=== PATIENT | female | born 1995 | race Caucasian/White ===

== ENCOUNTER 2019-02-05 18:13 | Emergency (ER) | payer OTHER, SELFPAY ==
[2019-02-05 18:14] VITALS: BP 137/86; PULSE 103; RESP 28; TEMP 36.6; O2SAT 98; BMI 26.6
--- NOTE | 2019-02-05 18:15 | ED.RN ---
Addendum entered by Emiliana Campos 02/05/19 18:17: PT ALSO HAD BREATHING TX AND ALBUTEROL INHALER USE TECHNOLOGY SERVICES MANAGER. Original Note: PT HAS H/O ALLERGIES AND ASTHMA. SEPSIS ALERT NOT ALERTED D/T THIS HISTORY.
[2019-02-05] MEDS: predniSONE 20 MG Tablet 60 MG PO (18:31)
[2019-02-05] MEDS: Ipratropium/Albuterol Sulfate 3 ML AMPUL.NEB INHALATION (18:32)
[2019-02-05] MEDS: Albuterol 2.5 MG/3 ML VIAL.NEB. INHALATION ×2 (18:32)
[2019-02-05 18:35] VITALS: PULSE 110; RESP 20
--- NOTE | 2019-02-05 20:03 | ED.VISSUMM ---
- ER Visit Summary Date of Service: 02/05/19 Chief Complaint: Asthma, short of breath History of Present Illness: The patient is a 23 F reports increased shortness of breath last evening with wheezing. She states she will get relief for 2 to 4 hours with a nebulizer. She was using her inhaler every 2 hours and not noticing much improvement this afternoon. She was exposed to trees and pollen yesterday which she thinks triggered her asthma attack. She does not remember the last time she was on steroids for her breathing. Physical Examination: Blood pressure is 137/86, temperature 97.9, heart rate 103, respiratory rate 28, pulse ox 98% on room air. Patient sitting upright in bed. She is speaking sentences. Heart is regular rate and rhythm. Lung sounds with expiratory wheezes and decreased air movement throughout. Abdomen is soft and nontender. Test Results: [] Emergency Department Course and Treatment: Patient was given DuoNeb +2 albuterol's along with p.o. prednisone. I evaluated her immediately after the aerosols and she felt somewhat jittery. I was later asked to come back to her room. She had had a coughing fit and could not catch her breath. She hyperventilated and was having spasms in her hands and feet. Nonrebreather mask was on her when I entered the room. I asked the nurse to turn the oxygen off to it. With slow breathing we were able to get her calms down and off of the mask. I have reevaluated her 2 or 3 separate times since then and she is resting comfortably and feels much improved. She will be given a spacer to use with her inhaler. She will be given 4 additional days of steroids. Treatment Plan: [] Disposition: Discharge Impression: Asthma exacerbation This note was generated with [employer] dictation software. It may contain incorrect words, spelling, and punctuation that were not noted in review of the chart prior to signing ED Disposition - Plan for ED Patient: Disposition: Home or Assisted Living Instructions: ED Reactive Airway Disease Prescriptions: Prednisone [Deltasone] 40 mg PO DAILY #8 tablet Referrals: Moi Sewell III, MD [Primary Care Provider] - 3-5 Days if not improving
== END 2019-02-05 20:15 | disposition home or self-care (01) ==
PROVIDERS: Emergency Provider Emergency Medicine; Family Provider Family Medicine; PCP Family Medicine
DX: J45.901 Unspecified asthma with (acute) exacerbation (principal)
CPT/HCPCS: 94640; 99282

== ENCOUNTER 2021-10-05 00:21 | Emergency (ER) | payer OTHER, SELFPAY ==
[2021-10-05 00:24] VITALS: BP 133/67; PULSE 83; RESP 15; TEMP 36.9; O2SAT 100; BMI 25.4
--- NOTE | 2021-10-05 00:32 | EX.ED.DYSGE1 ---
HPI History of Present Illness Chief Complaint: Nausea/Vomiting Informant: patient Narrative Narrative: 25-year-old female presenting to the emergency department with nausea. Patient states that she is approximately 18 weeks (). Currently following with automotive assembler in [facility]. Patient states that she had diarrhea this morning. No further diarrhea since then. An hour prior to arrival she laid down and had nausea and the developed a sharp pain on the right and the left sides of her abdomen. No vomiting. No fevers. No runny nose sore throat or cough. No vaginal bleeding or leakage of fluid. She notes the has been rather uneventful. PFSH PFSH Medical History no medical history Home Medications ondansetron 4 mg PO Q6H PRN PRN #15 tab 10/05/21 [Rx Last Taken Unknown] [id number] [] 1 tab PO DAILY 10/05/21 [History Last Taken Unknown] Allergy/AdvReac Type Severity Reaction Status Date / Time Sulfa (Sulfonamide Allergy Rash Verified 10/05/21 00:23 Antibiotics) Surgical History no surgical history Social History (Updated 10/05/21 @ 00:[address] Vinny Jarvis, DO) current gender identity: female Smoking Status: Never smoker ROS ROS ED Constitutional Constitutional ED: Denies chills, fever(s) or weight loss Eyes Eyes: Denies change in vision or diplopia ENT ENT ED: Denies ear pain, rhinorrhea or sore throat Cardiovascular Cardiovascular: Denies chest pain, orthopnea, palpitations or racing heartbeat Respiratory/Chest Respiratory/Chest: Denies cough, dyspnea or orthopnea Gastrointestinal Gastrointestinal: Reports abdominal pain, diarrhea and nausea; Denies vomiting Genitourinary Genitourinary ED: Denies dysuria, hematuria or urinary frequency Musculoskeletal Musculoskeletal: Denies arthralgias or myalgias Integumentary Denies abscess or rash Neurologic Neurologic: Denies headache(s) or weakness Psychiatric Psychiatric: Denies anxiety, depression, suicidal ideation or suicidal thoughts Endocrine Endocrinology: Denies polydipsia, polyphagia or polyuria Allergic/Immunologic Allergic/Immunologic ED: Denies mouth swelling, tongue swelling or urticaria EXAM Physical Exam Const Vital Signs: 10/05/21 00:24 Temperature 98.4 F Temperature Source Oral Pulse Rate 83 Respiratory Rate 15 Blood Pressure 133/67 H Blood Pressure Mean 89 Pulse Ox 100 Oxygen Delivery Method Room Air Positive well nourished and well developed General Appearance ED: well developed HEENT Reports normocephalic, head/scalp atraumatic, TM's clear and moist mucous membranes Negative for trauma Tympanic Membrane ED: Yes TM's clear Eyes PERRL and EOMs intact bilaterally Neck no lymphadenopathy, supple and no JVD Resp normal respiratory effort and clear to auscultation bilaterally Cardio regular rate, regular rhythm and no murmurs GI normal to inspection, nondistended, normoactive bowel sounds and non-tender Palpation: soft Back/Spine no CVA tenderness and normal ROM Extremity normal to inspection General Extremety ED: Negative for edema General Extremity: Negative for edema Neuro oriented x3 and CN's II-XII intact bilaterally Sensorium / Orientation: alert Motor Exam: strength 5/5 throughout Psych mental status grossly normal Mood & Affect: Negative for depressed or tearful Skin no rashes or lesions noted and no wounds MDM MDM MDM Narrative Medical decision making narrative: White count 9.4. CMP negative. Lipase is 78. Urinalysis 1+ bacteria but no overt infection. Patient received a dose of Zofran. heart tones are normal. Her abdomen is nonsurgical. She clinically appears well. Is difficult to say with 1 episode of diarrhea and now with nausea if this represents a gastroenteritis. Patient will have Zofran written for her. Return if worsening or concerns patient and her significant other comfortable with this plan. Lab Data Attestation: I reviewed the patient's lab results. Labs: Laboratory Results - last 24 hr 10/05/21 10/05/21 10/05/21 01:00 01:00 01:05 WBC 9.4 RBC 3.67 L Hgb 11.3 L Hct 33.0 L MCV 89.9 MCH 30.8 MCHC 34.2 RDW Std Deviation 41.6 RDW Coeff of Ksenia 12.8 Plt Count 231 MPV 10.5 Immature Gran % (Auto) 0.300 Neut % (Auto) 60.1 Lymph % (Auto) 25.7 [place]lin % (Auto) 11.3 H Eos % (Auto) 2.2 Baso % (Auto) 0.4 Absolute Neuts (auto) 5.6 Absolute Lymphs (auto) 2.40 Nucleated RBC % 0 Sodium 140 Potassium 3.6 Chloride 107 Carbon Dioxide 25.0 Anion Gap 8 BUN 15 Creatinine 0.50 L Estim Creat Clear Calc 151.11 Est GFR (MDRD) Af Amer 193 Est GFR (MDRD) Non-Af 159 BUN/Creatinine Ratio 29.7 H Glucose 74 Calcium 8.4 L Total Bilirubin 0.20 AST 14 L ALT 26 Alkaline Phosphatase 37 L Total Protein 6.5 Albumin 3.0 L Globulin 3.5 Albumin/Globulin Ratio 0.9 Lipase 78 Urine Color Yellow Urine Clarity Clear Urine pH 6.5 Ur Specific [place] 1.015 Urine Protein 15 H Urine Glucose (UA) Normal Urine Ketones Negative Urine Occult Blood Negative Urine Nitrite Negative Urine Bilirubin Negative Urine Urobilinogen Normal Ur Leukocyte Esterase Negative Urine RBC 0 SEEN Urine WBC 0-5 SEEN Ur Squamous Epith Cells 0-5 SEEN Urine Bacteria 1+ Urine Mucus 0 SEEN Discharge Plan Triage Chief Complaint: Nausea/Vomiting ED Provider: Vinny Jarvis Dx/Rx/DC Orders Clinical Impression: Second trimester , Nausea, Diarrhea Instructions: Nausea Vomit Control Prescriptions: New ondansetron [ondansetron] 4 MG tablet 4 mg PO Q6H PRN PRN (Reason: Nausea) Qty: 15 RF: 0 No Action 1 mg Tablet 1 tab PO DAILY RF: 0 Primary Care Provider: Care Physician,No Primary Referrals: Care Physician,No Primary [Primary Care Provider] - Activity Restrictions/Additional Instructions: Follow-up with your oracle applications developer as scheduled Disposition Disposition: Home, Self Care
[2021-10-05] MEDS: Ondansetron 4 MG/2 ML Vial IV (01:04)
[2021-10-05 01:07] LABS: Absolute Neutrophil Count 5.6 X10^3/uL (2.0-7.7); Basophil# 0.04 X10^3/uL; Basophil% 0.4 % (0-1); Eosinophil# 0.21 X10^3/uL; Eosinophils% 2.2 % (0-5); Hemoglobin 11.3 g/dL (12.0-15.0); Lymphocyte % 25.7 % (19-41); Mean Corp Hgb Conc 34.2 g/dL (32-36); Mean Corpuscular Hgb 30.8 pg (27.0-32.0); Mean Corpuscular Volume 89.9 fL (81-99); Mean Platelet Vol. 10.5 fl (6.2-12.0); Monocyte# 1.06 X10^3/uL; Monocyte% 11.3 % (0-10); NRBC Flagged by Analyzer 0 % (0-5); Neutrophil # 5.61 X10^3/uL (2.7-7.7); Neutrophil % 60.1 % (47-70); Platelet Count 231 K/mm3 (150-450); RBC Distribution Width CV 12.8 % (11.6-14.6); RBC Distribution Width SD 41.6 fl (35.1-43.9); Red Blood Count 3.67 M/mm3 (4.2-5.4); White Blood Count 9.4 K/mm3 (4.4-11.0)
[2021-10-05 01:13] LABS: Mucous, Urine 0 SEEN /hpf (<or=2+); Red Blood Cells-Urine 0 SEEN /hpf (0-5)
[2021-10-05 01:14] LABS: Color, Urine Yellow (Yellow); Glucose, Dipstick Normal (Normal); Ketone-Dipstick Negative (Negative); Leukocyte Esterase-Dipstick Negative /ul (Negative); Nitrite-Dipstick Negative (Negative); Occult Blood-Urine Negative /ul (Negative); Protein-Dipstick 15 mg/dl (Negative); Specific Gravity, Urine 1.015 (1.002-1.030); Urine Bilirubin Dipstick Negative (Negative); Urine Clarity Clear (Clear); Urine Urobilinogen Normal (Normal); Urine pH 6.5 (5.0 - 8.0)
[2021-10-05 01:23] LABS: Bacteria 1+ /hpf (None Seen); Squamous Epithelial Cells - UA 0-5 SEEN /hpf (5-10); White Blood Cells 0-5 SEEN /hpf (0-5)
[2021-10-05 01:24] LABS: ALB/GLOB Ratio 0.9 RATIO (0.9-2.4); AST(SGOT) 14 U/L (15-37); Alanine Aminotransfer ALT/SGPT 26 U/L (13-56); Alkaline Phosphatase 37 U/L (45-117); Anion Gap 8 (5-15); BUN 15 mg/dL (7-18); BUN/Creat Ratio 29.7 RATIO (10-20); Calcium,Total 8.4 mg/dL (8.5-10.1); Chloride 107 mmol/L (98-107); EST Glomerular Filtration Rate 159 mL/min (>60); Est Glom Filt Rate - Afr Amer 193 mL/min (>60); Estimated Creatinine Clearance 151.11 ml/min; Globulin 3.5 g/dL (2.2-4.2); Glucose 74 mg/dL (74-106); Lipase 78 U/L (73-393); Potassium 3.6 mmol/L (3.5-5.1); Protein, Total 6.5 g/dL (6.4-8.2); Sodium Level 140 mmol/L (136-145)
== END 2021-10-05 01:41 | disposition home or self-care (01) ==
PROVIDERS: Emergency Provider Emergency Medicine; Visit Provider Emergency Medicine
DX: O21.0 Mild hyperemesis gravidarum (principal); O26.892 Other specified pregnancy related conditions, second trimester; R19.7 Diarrhea, unspecified; Z3A.18 18 weeks gestation of pregnancy
CPT/HCPCS: 80053; 81001; 83690; 85025; 87426; 96374; 99283; J2405

== ENCOUNTER 2022-01-21 02:00 | Outpatient (CLI) | payer OTHER, SELFPAY ==
[2022-01-21 02:18] VITALS: BP 142/66; PULSE 155
--- NOTE | 2022-01-21 06:15 | OB.TRI.PN ---
Progress Notes Date of Service: 01/21/22 Progress Note: Chief complaint: Psychosis History of present illness: 26-year-old G1, P0 at 33 weeks arrives to [facility] being taken care of by clay structure builder and servicer. Patient noted by family to be lucid and incoherent in her thoughts, rambling and not making any sense. Also found to be combative. Feeling like she is scared and afraid. Denies suicidal homicidal thoughts or ideations. Patient with possible complaints of leakage of fluid but difficult to discern from other complaints. Obstetrical history: G1: Current Past medical history: None Medications: None Past surgical history: None Allergies: No known drug allergies Social history: Denies smoking, alcohol use, drug use Family history: Denies history DVT or PE Review of systems: Besides above pertinent positives a full review of systems was performed and found to be negative Physical exam: Vital signs: Blood pressure 111/60 pulse 89 respiratory rate 16 SPO2 97% on room air General: Normal-appearing no acute distress. Now resting in bed HEENT: Normocephalic atraumatic no cervical of adenopathy Cardiac/respiratory: No use of accessory muscles, nonlabored breathing Abdomen: Soft, nontender, gravid. No palpable contractions Extremities: No peripheral edema normal peripheral pulses Psych: AOA x3. Responsive and relaxed noncombative. Depressive and mood. Normal speech pattern Labs: ROM negative Assessment plan: 26-year-old G1, P0 at 33 weeks being seen by clay structure builder and servicer with acute psychosis. Initially combative on labor and delivery sent to ER for psych evaluation. History gathered from patient, , clay structure builder and servicer. No medications given overall upon my examination calm and AOA x3 but depressive thoughts and concerns for her mother and some flight of thought. Denies suicidal or homicidal ideations. Seems much improved from initial nursing evaluation. agreed improvement from initial evaluation and patient she feels seems improved. Discussed case with ER physician Dr. Meade, seen by crisis team and deemed okay for home-going. From a obstetric standpoint normal heart tracing, cervix no signs of labor, ROM negative no signs of rupture membranes. Overall obstetrically reassuring. Discussed concerns with ER team for psych issues overall by ER deemed stable to go home. Given numbers for crisis centers and follow-up with crisis center. Discussed with patient and clay structure builder and servicer need for hospital-based obstetric care and at home was not recommended, patient and clay structure builder and servicer stated understanding.
--- NOTE | 2022-01-21 11:30 | CASEMGMT ---
Social Work Labor and Delivery Unit This underwriter mortgage loan consulted by unit clinical configuration release manager for support for this patient who presented to the unit with a gold layer and . The patient appearing to be having some mental health concerns at time of presentation. RN inquiring input on how to best support patient should patient return with similar complaints. Patient is reported as 33 weeks . Records reviewed. Noted OB physician documentation of concern for acute psychosis in this patient, as well as nursing documentation indicating patient having a difficultly accepting nursing interventions (batting nursing away), tearful, and yelling at nurses. Also noted that patient indicated to nursing that did not feel safe. Upon further review of records noted that patient was seen in the ED, evaluated by ED physician and crisis with plan for outpatient follow up at the local counseling center for expedited referral to care. Noted positive drug screen for marijuana. This underwriter mortgage loan with concerns due to presenting symptoms for this patient, and reported duration of symptoms, which from this underwriter mortgage loan's experience would warrant some close mental health follow up. For continuity of care of this patient, collaboration and handoff to the [facility] ED social work case manager Sarah RICH. ED SW to collaborate with crisis regarding mental health follow up and determination of need for additional services/interventions. -LAYLA Napier, HEATER TENDER
--- NOTE | 2022-01-25 20:51 | ED.RN ---
[facility] from ED discharge. I was able to see patient was ordered medications upon discharge from OB. Spoke with john at [facility] he will call OB to see if order can be called in
== END 2022-01-21 02:50 | disposition home or self-care (01) ==
LOC: WPOUT 02:04 → WP 02:05
PROVIDERS: Visit Provider Obstetrics & Gynecology
DX: O99.343 Other mental disorders complicating pregnancy, third trimester (principal); F23 Brief psychotic disorder; Z3A.33 33 weeks gestation of pregnancy
CPT/HCPCS: 59025; 59050; 80048; 80076; 80307; 81001; 82077; 84112; 84443; 84702; 85025; 87086; 87088; 96360; 99218; 99284; J7030; A4216; G0378

== ENCOUNTER 2022-01-21 02:57 | Emergency (ER) | payer OTHER, SELFPAY ==
[2022-01-21 02:59] VITALS: BP 134/110; PULSE 73; RESP 19; TEMP 37.2; O2SAT 99; BMI 24.2
[2022-01-21 03:25] LABS: Mucous, Urine 0 SEEN /hpf (<or=2+); Red Blood Cells-Urine 0 SEEN /hpf (0-5)
[2022-01-21 03:26] LABS: Color, Urine Yellow (Yellow); Glucose, Dipstick Normal (Normal); Ketone-Dipstick 15 mg/dl (Negative); Leukocyte Esterase-Dipstick 25 /ul (Negative); Nitrite-Dipstick Negative (Negative); Occult Blood-Urine Negative /ul (Negative); Protein-Dipstick 15 mg/dl (Negative); Urine Bilirubin Dipstick Negative (Negative); Urine Clarity Clear (Clear); Urine Urobilinogen Normal (Normal)
[2022-01-21] MEDS: 0.9% Normal Saline 1,000 ML 999 ML IV (03:27)
[2022-01-21 03:35] LABS: Absolute Lymphocyte Count 1.53 X10^3/uL (0.83-4.51); Absolute Neutrophil Count 5.4 X10^3/uL (2.0-7.7); Basophil# 0.02 X10^3/uL; Basophil% 0.2 % (0-1); Eosinophil# 0.14 X10^3/uL; Eosinophils% 1.7 % (0-5); Hematocrit 36.7 % (37-47); Hemoglobin 12.5 g/dL (12.0-15.0); Lymphocyte # 1.53 X10^3/ul (0.83-4.51); Mean Corp Hgb Conc 34.1 g/dL (32-36); Mean Corpuscular Hgb 31.3 pg (27.0-32.0); Mean Platelet Vol. 10.8 fl (6.2-12.0); Monocyte# 0.91 X10^3/uL; Monocyte% 11.3 % (0-10); NRBC Flagged by Analyzer 0 % (0-5); Neutrophil # 5.42 X10^3/uL (2.7-7.7); Neutrophil % 67.3 % (47-70); Platelet Count 241 K/mm3 (150-450); RBC Distribution Width CV 12.6 % (11.6-14.6); RBC Distribution Width SD 42.2 fl (35.1-43.9); Red Blood Count 3.99 M/mm3 (4.2-5.4); White Blood Count 8.1 K/mm3 (4.4-11.0)
[2022-01-21 03:35] LABS: Bacteria 2+ /hpf (None Seen); Squamous Epithelial Cells - UA 0-5 SEEN /hpf (5-10); White Blood Cells 0-5 SEEN /hpf (0-5)
[2022-01-21 03:41] LABS: Amphetamine Urine VISTA NEGATIVE (<1000 ng/mL); Barbiturate Urine VISTA NEGATIVE (< 200 ng/mL); Benzodiazepine Urine VISTA NEGATIVE (< 200 ng/mL); Cocaine Urine VISTA NEGATIVE (< 300 ng/mL); Ecstacy Urine VISTA NEGATIVE (< 500 ng/mL); Methadone Urine VISTA NEGATIVE (< 300 ng/mL); PCP Urine VISTA NEGATIVE (< 25 ng/mL); THC Urine VISTA POSITIVE (< 50 ng/mL); Vista UDS pH Range 5
[2022-01-21 03:48] LABS: Alcohol, Blood (Medical)-Serum < 3.0 mg/dL
[2022-01-21 03:52] VITALS: RESP 18; O2SAT 100
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
[2022-01-21 04:00] LABS: Anion Gap 8 (5-15); BUN 8 mg/dL (7-18); BUN/Creat Ratio 13.4 RATIO (10-20); Calcium,Total 8.5 mg/dL (8.5-10.1); Chloride 111 mmol/L (98-107); EST Glomerular Filtration Rate 131 mL/min (>60); Est Glom Filt Rate - Afr Amer 158 mL/min (>60); Estimated Creatinine Clearance 124.85 ml/min; Glucose 84 mg/dL (74-106); Potassium 3.7 mmol/L (3.5-5.1); Sodium Level 139 mmol/L (136-145); Thyroid Stim Hormone (TSH) 0.96 uIU/mL (0.358-3.74)
[2022-01-21 04:07] LABS: hCG Titer Quant., Serum 7820 mIU/mL (1-3)
[2022-01-21 04:19] LABS: AST(SGOT) 21 U/L (15-37); Alanine Aminotransfer ALT/SGPT 24 U/L (13-56); Albumin, Serum 3.1 g/dL (3.2-5.0); Alkaline Phosphatase 87 U/L (45-117); Globulin 3.6 g/dL (2.2-4.2); Protein, Total 6.7 g/dL (6.4-8.2)
--- NOTE | 2022-01-21 04:59 | NURSING ---
Spoke with OB nurse about concern of contractions and pt water possibly breaking verse incontinent. pt allowed her day care attendant to check her cervix 1-1.5cm per day care attendant. OB nurse will talk with OB doctor and get back with ED staff.
--- NOTE | 2022-01-21 05:36 | NURSING ---
OB nurse on unit completed ROM sent to lab. pt allowed OB nurse to perform cervix check exam.
[2022-01-21 05:47] LABS: ROM Internal Control Test YES-OK TO RESULT pt. (Internal QC); ROM Patient Test Negative (Negative)
--- NOTE | 2022-01-21 06:51 | NURSING ---
Dr Nava spoke with ED doctor and requested pt be placed for mental health
--- NOTE | 2022-01-21 07:05 | NURSING ---
Pt to report to crisis center at 11am for diagnostic services. pt, spouse, and mother in law stated understanding.
== END 2022-01-21 07:06 | disposition home or self-care (01) ==
PROVIDERS: Emergency Provider Student in an Organized Health Care Education/Training Program; PCP Family Medicine; Visit Provider Student in an Organized Health Care Education/Training Program
DX: O26.893 Other specified pregnancy related conditions, third trimester (principal); F41.9 Anxiety disorder, unspecified; R41.0 Disorientation, unspecified; R31.9 Hematuria, unspecified; Z3A.33 33 weeks gestation of pregnancy; O99.343 Other mental disorders complicating pregnancy, third trimester
CPT/HCPCS: 80048; 80076; 80307; 81001; 82077; 84112; 84443; 84702; 85025; 87086; J7030; A4216

== ENCOUNTER 2022-01-21 13:20 | Emergency (ER) | payer OTHER, SELFPAY ==
[2022-01-21] VITALS (9 sets, daily range): BP systolic 110–128; BP diastolic 62–93; PULSE 74–83; RESP 15–22; TEMP 36.1–36.9; O2SAT 95–100; BMI 27.3
[2022-01-21 14:43] LABS: Thyroid Stim Hormone (TSH) 0.89 uIU/mL (0.358-3.74)
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
--- NOTE | 2022-01-21 15:11 | CT_ITS ---
STUDY: CT BRAIN WITHOUT CONTRAST REASON FOR EXAM: Female, 26 years old. Altered mental status/confusion -- ; please shield abd RADIATION DOSAGE (If Supplied By Facility): CTDIvol = ( 44.99 ) mGy, DLP = ( 762.36 ) mGycm TECHNIQUE: Transaxial CT imaging of the brain was performed without administration of intravenous contrast material. Individualized dose optimization techniques were used for this CT. COMPARISON: Comparison is made with prior study dated 10/09/2015. FINDINGS: Normal soft tissue structures. Normal calvarium. Normal size ventricles and extra-axial spaces for the patient''s age. Normal white matter tracts of the cerebral hemispheres. Normal basal ganglia and thalami. Normal brainstem. Normal cerebellum. There is no intracranial hemorrhage. There are no findings of an acute ischemic infarction. Mild degree of mucosal thickening of the right ethmoid sinus. CT/Brain/Head without Contrast IMPRESSION: Mild degree of mucosal thickening of the right ethmoid sinus. Electronically Signed: Alfie Aguero MD at 15:25 EDT ,
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
--- NOTE | 2022-01-21 17:38 | CM.ED ---
JACK Note JACK called [facility] and made referral. JACK faxed referral information to [facility]. JACK called [facility] and inquired if they would take accept a patient 33 weeks . [facility] said that it would be up to the MD. JACK faxed referral to [facility] JACK called [facility]. They are unsure if they would accept patient as she is 33 weeks . [facility] requested demographics be faxed to them for review. JACK faxed demographics to [facility]. JACK called [facility]. They can't accept patient. JACK faxed referral to [facility] for review. JACK faxed referral to [facility] for review. JACK received call from Almita at [facility]. They will review the packet JACK called Martha at [facility]. She will review the packet for patient. Sarah RICH
--- NOTE | 2022-01-21 19:27 | CM.ED ---
JACK Note: SW received call from [facility]. They declined patient due to acuity.
--- NOTE | 2022-01-21 19:38 | CM.ED ---
SW Note [facility] was called by this jingle writer. They are at capacity. Sarah RICH
--- NOTE | 2022-01-21 19:42 | CM.ED ---
Addendum entered by Sarah Olguin 01/24/22 14:37: Prior to leaving patient said that she was ok to go home. SW advised patient that she needed to go somewhere for help and could not go home. Patient receptive to this plan. SW advised patient that she was accepted at [facility]. Patient and her voiced understanding. Plan: [facility] Addendum entered by Sarah Olguin 01/21/22 20:20: [facility] has no beds. [facility]. They are unable to take patient due to acuity. JACK called [facility]. They do not take [facility]. SW called [facility]. They do not take patients. SW called [facility]. They do not take patient. SW called [facility]. They take patiet on a case by case basis. However, based on patient being 33 weeks the admission staff did not think they would accept patient. JACK called [facility]. They accept patients. JACK faxed referral. JACK received call from Martha at [facility]. They can accept patient. Accepting MD is Dr. Sam. RN to RN is [phone]. Patient is going to the C unit [id number].Martha said that insurance is ok and it has been entered in the computer so transport can be scheduled. Nya said that transport is 2-3 hours out. JACK updated patient and her . JACK faxed tox screen, pink slip and covid screen to [facility]. JACK received call from Mitchell at [facility]. They were able to accept patient. However, patient was accepted at [facility] so placement not needed. JACK called [facility] and advised placement was not [facility]. [facility] Original Note: JACK Note JACK called [facility]. They do not take patient on psych [facility] LISWILLIAM
--- NOTE | 2022-01-21 21:05 | ED.RN ---
Report given to Karen at [facility].
[2022-01-22] VITALS: RESP 14
[2022-01-22 01:27] VITALS: BP 184/119; RESP 16; O2SAT 96
[2022-01-22 01:31] VITALS: BP 111/63; PULSE 75; RESP 19; TEMP 36.9; O2SAT 95
--- NOTE | 2022-01-25 10:37 | CM.ED ---
J[facility] made report to [facility] regarding patient. Nathaly voiced that she is unsure what they can do at this time but it is good that they are aware. Sarah RICH
== END 2022-01-22 01:32 ==
PROVIDERS: Emergency Provider Emergency Medicine; PCP Family Medicine; Visit Provider Emergency Medicine
DX: O99.343 Other mental disorders complicating pregnancy, third trimester (principal); F29 Unspecified psychosis not due to a substance or known physiological condition
CPT/HCPCS: 70450; 84443; 87811; 99285

== ENCOUNTER 2022-03-07 02:55 | Inpatient (IN) | payer OTHER, SELFPAY ==
[2022-03-07] VITALS (42 sets, daily range): BP systolic 98–138; BP diastolic 48–91; PULSE 56–153; RESP 16; TEMP 36.5–37.5; O2SAT 89–100; BMI 29.5
[2022-03-07 03:14] LABS: ROM Internal Control Test YES-OK TO RESULT pt. (Internal QC)
[2022-03-07 03:15] LABS: ROM Patient Test POSITIVE (Negative)
--- NOTE | 2022-03-07 03:32 | PCM.HP.OB ---
HPI - General General Date of Admission: 03/07/22 HPI Narrative PARISH KIM, is a 26 F who presents at 39 2/7 weeks gestation by states WALTER with painful contractions and leaking of clear fluid vaginally. She is accompanied by her Mitchell Kim and her home kindergarten instructional assistant Nahomi Malone who advised she come in for evaluation after hearing a heart rate deceleration. Patient initially received care with [facility] including dating US. complicated by hx of psychosis 12/2021. Maternal Data Information WALTER Calculator Estimated Delivery Date Method Current WG Current Estimate 03/12/22 Manual 39w 2d PFSH [facility] Medical History (Updated 03/07/22 @ 03:[address] Kait Lloyd MD) Abuse Anxiety Asthma Depression Heart murmur Panic attacks Psychiatric disorder Home Medications [id number] [] 1 tab PO DAILY 10/05/21 [History Last Taken 03/06/22 21:00] quetiapine [Seroquel] 100 mg PO DAILY 03/07/22 [History Last Taken 03/06/22 21:00] Allergy/AdvReac Type Severity Reaction Status Date / Time Sulfa (Sulfonamide Allergy Rash Verified 03/07/22 02:06 Antibiotics) Surgical History [place] teeth removed Social History (Updated 03/07/22 @ 03:[address] Kait Lloyd MD) Smoking Status: Never smoker alcohol intake: never substance use type: does not use and other details: CBD Gummies for weeks, nothing else History 1 Elective abortions Hx Para 0 Spontaneous abortions Hx # Term Pregnancies Ectopic pregnancies Hx # Pregnancies Multiple births # of living children NST FHR Rate Baby A Baseline: 145 Variability:: Moderate Accelerations:: 15 x 15 Decelerations:: None NST Reactive:: Yes FHR Category:: Category I Uterine Activity:: 3-4/10 Vital Signs Vital Signs Vital Signs: 03/07/22 02:10 03/07/22 02:11 03/07/22 02:12 Temperature 98.9 F Temperature Source Temporal Pulse Rate 69 74 Blood Pressure 138/86 H BP Systolic 138 BP Diastolic 86 Pulse Ox 98 Weight Weight: 78.199 kg Body Mass Index (BMI) 29.5 Physical Exam Const alert, oriented x3 and no apparent distress HEENT normocephalic Head and Scalp: atraumatic Resp normal respiratory effort, normal air movement and clear to auscultation bilaterally Cardio regular rate and regular rhythm GI normal to inspection, nondistended, normoactive bowel sounds, soft to palpation, non-tender and non-distended Inspection: gravid Narrative: Recent RN exam / US shows julian IUP, CEPHALIC, direct OP with fundal posterior placenta Labs Labs Labs: Hct 36.7 % (37-47) L Hgb 12.5 g/dL (12.0-15.0) Assessment & Plan (1) 39 weeks gestation of : COMMENT: SROM PLAN: Admit in labor Epidural per patient request GBS unknown, will treat if prolonged rupture of membranes >18h labs sent Social work consultation
[2022-03-07] MEDS: LACTATED RINGERS 500 ML 999 ML IV (03:34)
[2022-03-07 03:45] LABS: Bacteria 0 SEEN /hpf (None Seen); Mucous, Urine 0 SEEN /hpf (<or=2+); Red Blood Cells-Urine 0 SEEN /hpf (0-5); Squamous Epithelial Cells - UA 0 SEEN /hpf (5-10); White Blood Cells 0 SEEN /hpf (0-5)
[2022-03-07 03:47] LABS: Color, Urine Straw (Yellow); Glucose, Dipstick Normal (Normal); Ketone-Dipstick Negative (Negative); Leukocyte Esterase-Dipstick Negative /ul (Negative); Nitrite-Dipstick Negative (Negative); Occult Blood-Urine Negative /ul (Negative); Protein-Dipstick Negative (Negative); Specific Gravity, Urine 1.005 (1.002-1.030); Urine Bilirubin Dipstick Negative (Negative); Urine Clarity Clear (Clear); Urine Urobilinogen Normal (Normal); Urine pH 6.5 (5.0 - 8.0)
[2022-03-07 03:48] LABS: Absolute Lymphocyte Count 1.45 X10^3/uL (0.83-4.51); Absolute Neutrophil Count 11.9 X10^3/uL (2.0-7.7); Basophil# 0.04 X10^3/uL; Basophil% 0.3 % (0-1); Eosinophil# 0.07 X10^3/uL; Eosinophils% 0.5 % (0-5); Hematocrit 36.7 % (37-47); Hemoglobin 12.2 g/dL (12.0-15.0); Lymphocyte # 1.45 X10^3/ul (0.83-4.51); Mean Corp Hgb Conc 33.2 g/dL (32-36); Mean Corpuscular Hgb 30.6 pg (27.0-32.0); Mean Platelet Vol. 12.5 fl (6.2-12.0); Monocyte# 0.93 X10^3/uL; Monocyte% 6.4 % (0-10); NRBC Flagged by Analyzer 0 % (0-5); Neutrophil # 11.89 X10^3/uL (2.7-7.7); Neutrophil % 82.1 % (47-70); Platelet Count 186 K/mm3 (150-450); RBC Distribution Width CV 13.2 % (11.6-14.6); RBC Distribution Width SD 44.2 fl (35.1-43.9); Red Blood Count 3.99 M/mm3 (4.2-5.4); White Blood Count 14.5 K/mm3 (4.4-11.0)
[2022-03-07 03:56] LABS: Bedside Glucose 94 mg/dL (74-106)
[2022-03-07 04:05] LABS: Amphetamine Urine VISTA NEGATIVE (<1000 ng/mL); Barbiturate Urine VISTA NEGATIVE (< 200 ng/mL); Benzodiazepine Urine VISTA NEGATIVE (< 200 ng/mL); Cocaine Urine VISTA NEGATIVE (< 300 ng/mL); Ecstacy Urine VISTA NEGATIVE (< 500 ng/mL); Methadone Urine VISTA NEGATIVE (< 300 ng/mL); PCP Urine VISTA NEGATIVE (< 25 ng/mL); THC Urine VISTA NEGATIVE (< 50 ng/mL)
[2022-03-07] MEDS: Lactated Ringers 1,000 ML 200 ML IV ×2 (04:05→08:53)
[2022-03-07 04:25] LABS: Vista UDS pH Range 6
[2022-03-07] MEDS: fentaNYL-bupivacaine (epidural) 100 ML BAG EPIDURAL ×2 (04:31→08:52)
[2022-03-07] MEDS: Ondansetron 4 MG/2 ML Vial IV ×2 (05:04→09:07)
--- NOTE | 2022-03-07 07:04 | PCM.PN.OB ---
Subjective Subjective Barron is more comfortable with her epidural. No complaints. Objective Data Objective Data Vital Signs: Vital Signs Temp Pulse BP Pulse Ox 98.5 F 70 113/64 98 03/07/22 06:35 03/07/22 06:35 03/07/22 06:35 03/07/22 06:35 Weight: 78.199 kg Body Mass Index (BMI) 29.5 Intake & Output: Intake and Output for Last 24 Hours 03/05/22 03/06/22 03/07/22 23:59 23:59 23:59 Intake Total 500 / 500 Balance 500 / 500 Lab / Micro Data Result Diagrams: 03/07/22 03:30 Labs: Laboratory Results - last 24 hr 03/07/22 00:27: Vag Amniotic Fld Detect POSITIVE H 03/07/22 03:30: WBC 14.5 H, RBC 3.99 L, Hgb 12.2, Hct 36.7 L, MCV 92.0, MCH 30.6, MCHC 33.2, RDW Std Deviation 44.2 H, RDW Coeff of Ksenia 13.2, Plt Count 186, MPV 12.5 H, Immature Gran % (Auto) 0.700, Neut % (Auto) 82.1 H, Lymph % (Auto) 10.0 L, Union % (Auto) 6.4, Eos % (Auto) 0.5, Baso % (Auto) 0.3, Absolute Neuts (auto) 11.9 H, Absolute Lymphs (auto) 1.45, Nucleated RBC % 0 03/07/22 03:30: Urine Color Straw, Urine Clarity Clear, Urine pH 6.5, Ur Specific Atkinson 1.005, Urine Protein Negative, Urine Glucose (UA) Normal, Urine Ketones Negative, Urine Occult Blood Negative, Urine Nitrite Negative, Urine Bilirubin Negative, Urine Urobilinogen Normal, Ur Leukocyte Esterase Negative, Urine RBC 0 SEEN, Urine WBC 0 SEEN, Ur Squamous Epith Cells 0 SEEN, Urine Bacteria 0 SEEN, Urine Mucus 0 SEEN 03/07/22 03:30: Blood Type A POSITIVE, Antibody Screen NEGATIVE 03/07/22 03:30: Urine Opiates Screen NEGATIVE, Urine Methadone Screen NEGATIVE, Ur Barbiturates Screen NEGATIVE, Ur Phencyclidine Scrn NEGATIVE, Ur Amphetamines Screen NEGATIVE, MDMA (Ecstasy) Screen NEGATIVE, U Benzodiazepines Scrn NEGATIVE, Urine Cocaine Screen NEGATIVE, U Cannabinoids Screen NEGATIVE, Ur Drug Screen Comment 03/07/22 03:48: POC Glucose 94 Micro: Microbiology 03/07/22 03:30 Nasal Secretion SARS-CoV-2 Antigen (Rapid) - Final Physical Exam Narrative GEN - NAD, AAO x 3 FHR 135, moderate variability, + accelerations, no decelerations TOCO 3-01/02 SVE deferred as patient refuses exam Assessment & Plan (1) 39 weeks gestation of : COMMENT: SROM PLAN: Reports GBS negative Will call [facility] Medicine to obtain records Expectant management at this time
[2022-03-07 07:06] LABS: Chlamydia Trachomatis by PCR Negative (Negative); Neisserai gonorrhoeae by PCR Negative (Negative); Probe Check PASS; Sample Adequacy Control PASS; Specimen Processing Control PASS
[2022-03-07 08:48] LABS: Rubella IgG Reactive (Nonreactive); Syphilis Antibodies Non-reactive
[2022-03-07] MEDS: 0.9% Saline Lock 10 ML Syringe IV (09:07)
[2022-03-07 09:10] LABS: HIV - WCH Non-Reactive (Nonreactive); Hepatitis B Surface Antigen Non-Reactive (Nonreactive); Hepatitis C Antibody Non-Reactive (Nonreactive)
[2022-03-07] MEDS: proCHLORPERazine 10 MG/2 ML Vial IV (10:00)
[2022-03-07] MEDS: Oxytocin 30 units/NS 500 ml 30 UNITS/500 ML IV.SOLN 334 UNITS IV (11:35)
[2022-03-07] MEDS: Methylergonovine 0.2 MG/ML Ampul IM (11:42)
--- NOTE | 2022-03-07 11:49 | OP.PCM_ITS ---
Maternal Data Information WALTER Calculator Estimated Delivery Date Method Current WG Current Estimate 03/12/22 Manual 39w 2d Vaginal Delivery Operative Information Date of Procedure: 03/07/22 Pre-Operative Diagnosis: Term julian intrauterine Post-Operative Diagnosis: Term julian intrauterine Surgery / Procedure Performed: Spontaneous Vaginal Delivery Type of Anesthesia: Epidural Estimated Blood Loss: 600cc Findings Description of Procedure: Spontaneous vaginal delivery of viable female. No nuchal cord. Baby to mom. Second-degree laceration noted repaired in usual fashion, hemostatic. Cord clamped and cut. Spontaneous delivery of placenta. Return to room for bleeding. Bimanual exam completed with clearing lower uterine segment of clots. Uterus firm. Methergine x1 given. Barbering Teacher and respiratory present for meconium fluid. Infant A Gender: Female (1 minute): 8 (5 minute): 9
[2022-03-07] MEDS: QUEtiapine 100 MG Tablet PO (15:35)
--- NOTE | 2022-03-07 16:33 | CASEMGMT ---
Social Work Labor and Delivery Notified by RN that patient expressed to RN this afternoon that MOB is starting to not feel right, and expressed missing does of Seroquel last night. This justowriter operator familiar with patient from patient's presentation to the hospital in December 2021 when MOB was determined to be in an acute psychotic state. Records reviewed. Met with patient/mother of baby (MOB), /father of baby (FOB) Mitchell, and baby girl Lb. Introduced to self and social work role, acknowledging that MOB is likely tired and has just gone through a lot, but that this justowriter operator wanted to check in on MOB and see how MOB is feeling emotionally. MOB reports to not feel the best, describing to feel overwhelmed and that racing thoughts are coming again. MOB lying in bed, appearing sleepy but did open eyes and responded to this justowriter operator's questions. MOB reports the racing thoughts just started since hospitalization, and to feel that Seroquel has been working well prior to delivery, but missed a dose yesterday. Explored with MOB has to who is managing the Seroquel. MOB reports the psychiatrist who saw MOB at [facility] in [place], Dr. Alonso, saw MOB in the last week or two for a medication refill. MOB also reports has been connected with a trauma therapist, Zita, out of [place] who eventually plans to do EMDR with the MOB. This justowriter operator encouraged sleep (as lack of sleep can be a trigger to stefan, racing thoughts, psychosis symptoms). Broached with MOB that this justowriter operator would be back tomorrow, to check in and do usual assessment. MOB smiled and expressed agreement. Explored with MOB as to if there is anything that staff can be doing to help support MOB currently, as staff want to help MOB be as comfortable as possible. MOB expressed thanks and indicated that could not think of anything at the moment. Encouraged MOB to let staff know if starts to have a hard time, or needs additional support. MOB expressed agreement. Explored coping for when MOB is feeling overwhelmed: Showering and walks help. Touched base with the FOB who was holding baby. FOB reports since MOB has started the Seroquel, MOB has been doing well and back to normal. FOB reports sleep is a big factor for MOB, and also thinks missing a dose of the Seroquel last night did not help how MOB is feeling now. This justowriter operator let FOB know that staff is also present to support the FOB, so if at any time the FOB needs a break it is okay to let staff know this. FOB acknowledged understanding. Observed FOB holding baby in crook of arm, looking over at MOB for SW visit. Updated nursing, including MOB's identified coping skills. Plan: SW to follow and assist. -AMBER Napier, PLC TECHNICIAN
--- NOTE | 2022-03-07 18:16 | NURSING ---
181-late entry due to pt care. care assumed at 1600. Upon entering the room the patient reports not feeling right, and motions to her head. She then reports feeling concerned because she did not receive her Seroquel last night and is having racing thoughts. The ordered Seroquel dose was then given per patient request. JACK Mcdowell was notified of concern that patient is having racing thoughts shortly after delivery of infant. Alberto was then in the room to talk briefly with the patient. Huddle was conducted with charge nurse, staff nurse, JACK Mcdowell, and community fundraiser to address mental jackson concern for the patient. Via SW, pt reported that lack of sleep increases the racing thoughts, while showering and walking seem to help. Plan to allow to be in the nursery to allow for adequate parental sleep throughout night will be offered to the patient and FOB. Patient to be allowed to walk outside if needed and to be accompanied by her . Options for additional feeding methods will be offered and Black Campbell MD was notified of plan and possible request for medications if need arises throughout the night. She is requesting to be called if needed for additional medication orders. Plan for at least 48 hour stay to allow for mental health assessment and monitoring. Feeding, nursery and self care options were presented to patient and FOB. Nurse then left the room to allow for them to discuss feeding options. Patient very sleepy and not easily arousable. Upon entering the room again, this nurse obtained consent verbally by father for donor breast milk. Patient was again sleeping soundly in bed. Dr Izzy MD agrees with feeding plan.
--- NOTE | 2022-03-07 19:28 | NURSING ---
GBS negative. TOMER Chapin charted GBS ND but prenatals were updated and faxed to [facility]. Results reviewed, GBS was negative.
[2022-03-08 02:00] VITALS: BP 105/62; PULSE 84; RESP 16; TEMP 37.2; O2SAT 97
--- NOTE | 2022-03-08 03:25 | NURSING ---
Upon assuming care of pt, pt sleeping in room and in WBN. Pt slept until 2214 when this RN went to room to do shift assessment. Pt was drowsy,but easy to awake. Pt reports that she ''feels much better'' compared to how she was feeling before taking Seroquel this afternoon. Pt states that she has been up a couple of times trying to void,but has not been able to. This RN helped pt to restroom,but pt was only able to void 100 cc's. Pt appears to be in pain and reports that her bladder is so full, she just can't empty it,but thinks that she will feel better if she can empty bladder. Pt ambulated back to bed and began drinking water. This RN discussed with pt that if 6 hours passed since straight cath (which was done at 1700) and pt was still not able to void, then indwelling catheter would be inserted per protocol. By 2300, pt still had not voided anymore. Pt reported that she would be ok with insertion of indwelling cath to relieve some of the pressure that she was feeling.Franco catheter inserted by TOMER Lombardi, and pt instantly put out 1600 cc's of clear,yellow urine. Pt reported feeling relief once bladder was emptied. At this point, was still in WBN, and pt had not inquired about status of infant. FOB was in nursery visiting while pt was getting franco inserted. After FOB came back to pt's room without infant, this RN offered to bring infant back to room to be with parents. MOB seemed hesitant and looked to FOB to made decision. This RN left room so that parents could have a private conversation. After a few minutes, FOB came to nursery to visit and said that he would like to take back to room for a few minutes. Discussed 's feeding plan with FOB and advised FOB that if MOB would like to breastfeed , then MOB should either start pumping or attempt to latch infant every 3 hours. FOB advised RN that MOB would like to try to breastfeed infant for next feeding. Once infant was in room with parents, both parents were appropriate in interactions with pt. This RN assisted MOB with latching infant to breast. Provided education regarding suck/swallow/breathe and proper latch and positioning. Both parents voiced understanding. After feeding, at 0150, FOB called for RN to take pt back to WBN. Advised parents that would be brought back for next feeding session around 0345. Parents voiced understanding, and mom was resting with eyes closed before RN and infant left the room. FOB denies any needs at this time. Will continue to monitor.Alexandr RN
[2022-03-08 04:55] VITALS: BP 112/61; PULSE 84; RESP 16; TEMP 37.2; O2SAT 96
--- NOTE | 2022-03-08 06:51 | NURSING ---
Parents participated in infant's feeds at 0100 and 0400, and was in WBN between feeds. Mom appropriate and loving towards infant during feeding sessions. Mom reported that she is feeling more rested after sleeping while infant was in WBN. At 0645 infant was returned to mother's room. Infant in crib between MOB on bed and FOB on couch. MOB aware is back in room and will feed infant at 0705. TOMER Strange
[2022-03-08 08:17] VITALS: BP 109/69; PULSE 94; RESP 16; TEMP 37
[2022-03-08] MEDS: Ibuprofen 600 MG Tablet PO ×3 (08:34→22:41)
--- NOTE | 2022-03-08 08:57 | PCM.PN.OB ---
Subjective Subjective She is sore, but painfulness of perineum was manageable. She tolerates PO. Feels good overall. She got some sleep last night. is going well. Objective Data Objective Data Vital Signs: Vital Signs Temp Pulse Resp BP Pulse Ox 98.6 F 94 16 109/69 96 03/08/22 08:17 03/08/22 08:17 03/08/22 08:17 03/08/22 08:17 03/08/22 04:55 Oxygen Delivery Method Room Air Weight: 78.199 kg Body Mass Index (BMI) 29.5 Intake & Output: Intake and Output for Last 24 Hours 03/06/22 03/07/22 03/08/22 23:59 23:59 23:59 Intake Total 2500.00 / 2500.00 Output Total 3550 / 3550 1700 / 1700 Balance -1050.00 / -1050.00 -1700 / -1700 Lab / Micro Data Result Diagrams: 03/07/22 03:30 Labs: Laboratory Results - last 24 hr 03/07/22 03:30: Hep Bs Antigen Non-Reactive, Hepatitis C Antibody Non-Reactive, HIV 1&2 Antibody Non-Reactive Micro: Microbiology 03/07/22 03:30 Nasal Secretion SARS-CoV-2 Antigen (Rapid) - Final Physical Exam Const alert, oriented x3 and no apparent distress Resp normal respiratory effort and normal air movement Cardio regular rate, regular rhythm, S1 normal heart sound and S2 normal heart sound Uterus Palpation: uterus fundus firm and other OB fundus nontender Extremity no calf tenderness Neuro oriented x3 Assessment & Plan (1) (spontaneous vaginal delivery): PLAN: Rh positive Rubella immune, HBsAg neg, HCV Ab neg, HIV neg, RPR nr Routine care hx psychosis - infant to nursery at night, donor milk supplementation to promote adequate sleep (2) Urinary retention: PLAN: d/c Ocampo at 11 am with voiding trial
[2022-03-08 14:35] VITALS: BP 113/74; PULSE 84; RESP 16; TEMP 36.3
[2022-03-08 20:05] VITALS: BP 113/67; PULSE 98; RESP 18; TEMP 37.2
[2022-03-09 00:48] VITALS: BP 110/62; PULSE 68; RESP 18; TEMP 36.4
[2022-03-09] MEDS: Ibuprofen 600 MG Tablet PO ×2 (08:17→14:27)
[2022-03-09 08:24] VITALS: BP 111/68; PULSE 82; RESP 16; TEMP 36.3; O2SAT 98
--- NOTE | 2022-03-09 09:12 | PCM.PN.OB ---
Subjective Subjective Patient without complaints. Minimal vaginal bleeding reported. Wants to go home today. Objective Data Objective Data Vital Signs: Vital Signs Temp Pulse Resp BP Pulse Ox 97.4 F L 82 16 111/68 98 03/09/22 08:24 03/09/22 08:24 03/09/22 08:24 03/09/22 08:24 03/09/22 08:24 Oxygen Delivery Method Room Air Weight: 172 lb 6.4 oz Body Mass Index (BMI) 29.5 Intake & Output: Intake and Output for Last 24 Hours 03/07/22 03/08/22 03/09/22 23:59 23:59 23:59 Intake Total 2500.00 / 2500.00 Output Total 3550 / 3550 2500 / 2500 Balance -1050.00 / -1050.00 -2500 / -2500 Lab / Micro Data Result Diagrams: 03/07/22 03:30 Micro: Microbiology 03/07/22 03:30 Nasal Secretion SARS-CoV-2 Antigen (Rapid) - Final Assessment & Plan (1) (spontaneous vaginal delivery): PLAN: Plan Doing well post day #2 status post spontaneous vaginal delivery. Will release to home with routine instructions.
--- NOTE | 2022-03-09 09:13 | DCINST_ITS ---
Discharge Instructions Diet Discharge Diet: No restrictions Activity Discharge Activity: May Drive (In 1 to 2 days if not taking narcotic pain medication), May Shower and May Take a Tub Bath May resume sexual activity in: 4-6 weeks Additional Activity Instructions:: Nothing in the vagina for 4-6 weeks. You may return to work/school in 6 weeks. Dressing / Incision Call your doctor if you observe: Fever of 101 or Higher, Inability to urinate, Inability to have a bowel movement and Using more than 1 pad per hour Follow Up Care Please Follow Up With: Kait Dunn MD When: Call [phone] to make an appointment with your doctor in 6 weeks. Test Results: Test results from this visit will be discussed in further detail at your follow- up appointment, if applicable. Discharge Plan Admission Admit Date/Time: 03/07/22 02:55 Primary Reason for Your Visit: Vaginal Delivery Attending Provider: Winnie Campbell Primary Care Provider: Alon Nava Discharge Orders/Prescriptions Prescriptions: No Action 1 mg Tablet 1 tab PO DAILY quetiapine [Seroquel] 100 mg Tablet 100 mg PO DAILY Referrals / Follow Up: Alon Nava MD [Primary Care Provider] - Disposition Disposition (needs filled in before D/C Order can be placed): Home, Self Care
[2022-03-09 14:17] VITALS: BP 109/61; PULSE 77; RESP 16; TEMP 36.4
[2022-03-09] MEDS: Senna/Docusate Sodium 1 Tablet PO (14:28)
== END 2022-03-09 17:00 | disposition home or self-care (01) | DRG 807 ==
LOC: WP 11:28 → WPOUT 03-08 12:39
PROVIDERS: Obstetrics & Gynecology; Admitting Provider Student in an Organized Health Care Education/Training Program; PCP Family Medicine; Visit Provider Student in an Organized Health Care Education/Training Program
DX: O76 Abnormality in fetal heart rate and rhythm complicating labor and delivery (principal); Z37.0 Single live birth; O70.1 Second degree perineal laceration during delivery; Z3A.39 39 weeks gestation of pregnancy; O77.0 Labor and delivery complicated by meconium in amniotic fluid; Z20.822 Contact with and (suspected) exposure to COVID-19; O99.893 Other specified diseases and conditions complicating puerperium; R33.9 Retention of urine, unspecified
CPT/HCPCS: 59025; 59050; 76815; 80307; 81001; 82962; 84112; 85025; 86703; 86762; 86780; 86803; 86850; 86900; 86901; 87340; 87426; 87491; 87591; 99218; J7120; A4216; G0378; J2405

== ENCOUNTER 2022-03-14 16:54 | Emergency (ER) | payer OTHER, SELFPAY ==
[2022-03-14 16:55] VITALS: BP 120/90; PULSE 86; RESP 16; TEMP 37; O2SAT 99; BMI 25.4
--- NOTE | 2022-03-14 17:27 | EX.ED.UPPERE ---
HPI History of Present Illness HPI Narrative: Patient presents with right upper arm pain and right hand pain for the last 4 days. She relates history that she was admitted for spontaneous vaginal delivery approximately 1 week ago. 4 days ago, she developed pain mainly in the right hand where she had the IV placed. It extends upwards to her right upper arm. She denies any fevers or chills. No chest pain or shortness of breath. She is right-hand dominant. No other symptoms. She presents for evaluation of her right hand and right upper arm pain. Chief Complaint: Upper Extremity Injury PFSH [facility] Medical History Abuse Anxiety Asthma Depression Heart murmur Panic attacks Psychiatric disorder Home Medications [id number] 1 mg tablet 1 tab PO DAILY 10/05/21 [History Last Taken 03/06/22 21:00] quetiapine 100 mg tablet (Seroquel) 100 mg PO DAILY 03/07/22 [History Last Taken 03/06/22 21:00] Allergy/AdvReac Type Severity Reaction Status Date / Time Sulfa (Sulfonamide Allergy Rash Verified 03/14/22 16:55 Antibiotics) Surgical History [place] teeth removed Social History Smoking Status: Never smoker alcohol intake: never substance use type: does not use and other details: CBD Gummies for weeks, nothing else ROS ROS ED ROS Narrative Constitutional: No fever, no chills. HEENT: No sore throat. No neck pain. No loss of vision. No rhinorrhea. Cardiovascular: No chest pain. No palpitations. No pedal edema. Respiratory: No cough, no shortness of breath. Abdominal: No abdominal pain. No nausea. No vomiting. Genitourinary: No dysuria. No hematuria. Musculoskeletal: Right hand and right upper arm pain/myalgias. No arthralgias. Neurologic: No headaches. No dizziness. No lightheadedness. Skin: No rash. No change in color. Psychiatric: No depression. No anxiety. EXAM Physical Exam Narrative Exam Narrative: Afebrile. Vital signs noted. HEENT: Normocephalic. Atraumatic. PERRL, EOMI. Neck soft and supple. No point tenderness or step off. Cardiovascular: Regular rate and rhythm. No murmurs, rubs, or gallops appreciated. Respiratory: No tachypnea. Lungs clear to auscultation bilaterally. Gastrointestinal: Abdomen soft, nontender, with normoactive bowel sounds. No rebound or guarding. Neurological: Awake. Alert. Nonfocal, nonlateralizing. Skin: No rash. Normal color. No pallor. Musculoskeletal: No pedal edema. Full range of motion extremities. Small puncture wound to dorsum of right hand with mild tenderness. Full range of motion of fingers and joint. Palpable radial pulse. Mild tenderness medial right biceps. No noted erythema. Const Vital Signs: 03/14/22 16:55 Temperature 98.6 F Temperature Source Temporal Pulse Rate 86 Respiratory Rate 16 Blood Pressure 120/90 H Blood Pressure Mean 100 Pulse Ox 99 Oxygen Delivery Method Room Air MDM MDM MDM Narrative Medical decision making narrative: Upper extremity venous Doppler is unavailable at this time. I wrote her to have 1 tomorrow and entered in the computer. She was told to take a daily aspirin and apply warm compresses to the area. I do feel that it may be more of a superficial thrombophlebitis. I do not feel antibiotics are indicated. I feel she be discharged safely home with follow-up. Return instructions to the emergency department were reviewed. Disposition is discharged home in stable condition. Discharge Plan Triage Chief Complaint: Upper Extremity Injury ED Provider: Prudencio Fajardo Dx/Rx/DC Orders Clinical Impression: Arm pain, right, Superficial thrombophlebitis Instructions: ED Myalgias, ED Thrombophlebitis, Superficial Prescriptions: No Action 1 mg Tablet 1 tab PO DAILY quetiapine [Seroquel] 100 mg Tablet 100 mg PO DAILY Other Ambulatory Orders: Venous Duplex US, Unilateral (Routine) Facility: [facility] - Location: [facility] [place] Ordered By: Prudencio Fajardo Primary Care Provider: Alon Nava Referrals: Alon Nava MD [Primary Care Provider] - 3-5 Days if not improving Activity Restrictions/Additional Instructions: Have your ultrasound performed tomorrow. Apply warm compresses to affected areas. Take an aspirin daily, 325 mg orally. Disposition Disposition: Home, Self Care
== END 2022-03-14 17:51 | disposition home or self-care (01) ==
PROVIDERS: Emergency Provider Emergency Medicine; PCP Family Medicine; Visit Provider Emergency Medicine
DX: O87.0 Superficial thrombophlebitis in the puerperium (principal); I80.8 Phlebitis and thrombophlebitis of other sites; O99.345 Other mental disorders complicating the puerperium; F41.0 Panic disorder [episodic paroxysmal anxiety]; F32.A Depression, unspecified; F41.9 Anxiety disorder, unspecified; J45.909 Unspecified asthma, uncomplicated; Z79.899 Other long term (current) drug therapy
CPT/HCPCS: 99282

== ENCOUNTER → 2022-03-15 | Outpatient (CLI) | payer OTHER, SELFPAY ==
--- NOTE | 2022-03-15 15:37 | VDUE_ITS ---
Reason For Study: pain Right Proximal Right jugular vein is spontaneous, widely patent, phasic, with no intraluminal echogenicity noted. Right subclavian vein is spontaneous, widely patent, phasic, with no intraluminal echogenicity noted. Right Lower Arm Right radial vein is compressible. Right ulnar vein is compressible. Right Arm Right axillary vein is spontaneous, patent, phasic, competent, compressible and demonstrates augmentation. Right brachial vein is compressible. Right cephalic vein is compressible. Basilic V is dilated and noncompressible. Prelim to Dr. Nava. VL/Venous Duplex US, Unilateral Interpretation Summary Deep veins of the right upper extremity are patent and compressible segmentally . There is no evidence of deep vein thrombosis. Acute superficial thrombophlebitis is noted i n the right basilic vein. The right cephalic vein is patent and compressible. Ordering Physician: Prudencio Fajardo Performed By: Micha Murray RVT ?
== END | disposition home or self-care (01) ==
LOC: CVS 15:36
PROVIDERS: PCP Family Medicine; Referring Provider Emergency Medicine; Visit Provider Emergency Medicine
DX: M79.601 Pain in right arm (principal)
CPT/HCPCS: 93971

== ENCOUNTER → 2023-01-02 | Outpatient (CLI) | payer OTHER, SELFPAY ==
[2023-01-02 13:37] LABS: Absolute Neutrophil Count 6.5 X10^3/uL (2.0-7.7); Basophil# 0.05 X10^3/uL; Basophil% 0.5 % (0-1); Eosinophil# 0.57 X10^3/uL; Hematocrit 34.9 % (37-47); Hemoglobin 11.7 g/dL (12.0-15.0); Mean Corp Hgb Conc 33.5 g/dL (32-36); Mean Corpuscular Hgb 30.5 pg (27.0-32.0); Mean Corpuscular Volume 91.1 fL (81-99); Mean Platelet Vol. 10.3 fl (6.2-12.0); Monocyte# 0.67 X10^3/uL; Monocyte% 7.1 % (0-10); NRBC Flagged by Analyzer 0 % (0-5); Neutrophil # 6.45 X10^3/uL (2.7-7.7); Neutrophil % 68.1 % (47-70); Platelet Count 237 K/mm3 (150-450); RBC Distribution Width SD 46.5 fl (35.1-43.9); Red Blood Count 3.83 M/mm3 (4.2-5.4); White Blood Count 9.5 K/mm3 (4.4-11.0)
[2023-01-02 14:33] LABS: HIV - WCH Non-Reactive (Nonreactive); Hepatitis B Surface Antigen Non-Reactive (Nonreactive); Hepatitis C Antibody Non-Reactive (Nonreactive); Rubella IgG Reactive (Nonreactive); Syphilis Antibodies Non-reactive
[2023-01-04 11:17] LABS: V-Zoster IgG (Immunity) 1538 index (Immune >165)
[2023-01-10 08:53] LABS: HPV Reflexed? NOT INDICATED
== END | disposition home or self-care (01) ==
PROVIDERS: PCP Family Medicine; Visit Provider Nurse Practitioner Women's Health
DX: Z34.81 Encounter for supervision of other normal pregnancy, first trimester (principal); N91.2 Amenorrhea, unspecified
CPT/HCPCS: 36415; 85025; 86703; 86762; 86780; 86787; 86803; 87086; 87340; 88175; G0145

== ENCOUNTER → 2023-03-22 | Outpatient (CLI) | payer OTHER, SELFPAY ==
--- NOTE | 2023-03-22 | LES_PTH ---
PATIENT: PARISH KEITH LOC: UNIQUE U#:[id number] AGE/SX: 27/F ROOM: RE03/22/[address]: Dr. Winnie Campbell DO : 1995 BED: DIS: 03/22/2023 SPEC #: [id number] RECD: 03/22/23 16:39 STATUS: PARISA BRYAN #: [id number] NUZHAT: 03/22/23 00:[address]: Winnie Campbell DEPT: SURGICAL PATHOLOGY RECD BY: Darwin Mayer ENTERED: 03/23/23 09:02 SP TYPE: Lesion OTHR DR: Dr. Alon Nava MD Tissues: Skin, NOS Procedures: Surgery Specimen Level III HEADER OPERATION: Mole removal PRE-OP DIAGNOSIS: Mole TISSUE SUBMITTED: Skin mole MICROSCOPIC DIAGNOSIS Skin mole, biopsy: Compound nevus with predominantly intradermal component. AM:natasha 03/24/2023 MICROSCOPIC DESCRIPTION Slides are reviewed. GROSS DESCRIPTION Received in fixative is one container labeled with the patient's name and designated mole. The specimen consists of a piece of man-brown skin measuring 0.5 x 0.2 x 0.2 cm. The specimen is inked and submitted entirely in one cassette. / SJ:natasha 03/23/2023 TC:5 CPT: 30945
== END | disposition home or self-care (01) ==
PROVIDERS: PCP Family Medicine; Visit Provider Student in an Organized Health Care Education/Training Program
DX: D22.9 Melanocytic nevi, unspecified (principal)
CPT/HCPCS: 88304

== ENCOUNTER → 2023-04-24 | Outpatient (CLI) | payer OTHER, SELFPAY ==
[2023-04-24 15:05] LABS: Hematocrit 31.9 % (37-47); Hemoglobin 10.6 g/dL (12.0-15.0); Mean Corp Hgb Conc 33.2 g/dL (32-36); Mean Corpuscular Volume 90.4 fL (81-99); Mean Platelet Vol. 10.8 fl (6.2-12.0); Platelet Count 261 K/mm3 (150-450); RBC Distribution Width CV 12.3 % (11.6-14.6); RBC Distribution Width SD 40.3 fl (35.1-43.9); Red Blood Count 3.53 M/mm3 (4.2-5.4); White Blood Count 11.7 K/mm3 (4.4-11.0)
[2023-04-24 15:08] LABS: Glucose Challenge Gest 1H 50g 107 mg/dL (70-140)
[2023-04-24 15:55] LABS: Syphilis Antibodies Non-reactive
== END | disposition home or self-care (01) ==
LOC: WOBLAB 14:10
PROVIDERS: PCP Family Medicine; Visit Provider Student in an Organized Health Care Education/Training Program
DX: Z34.82 Encounter for supervision of other normal pregnancy, second trimester (principal)
CPT/HCPCS: 36415; 82950; 85027; 86780

== ENCOUNTER 2023-06-10 10:40 | Outpatient (CLI) | payer OTHER, SELFPAY ==
[2023-06-10 11:04] VITALS: BP 117/69; PULSE 81
[2023-06-10 11:05] VITALS: TEMP 36.6
[2023-06-10 14:42] VITALS: BMI 29.9
--- NOTE | 2023-06-11 09:48 | OB.TRI.HP_ITS ---
HPI - General General Date of Admission: 06/10/23 Date of Service: 06/10/23 Chief Complaint: twins HPI Narrative PARISH KEITH, is a 27 F who presents for scheduled nonstress test for dichorionic diamniotic twin gestation, suspected intrauterine growth restriction in the third trimester Maternal Data Information Final WALTER: 06/19/23 Gestational age: 34 weeks PFSH PFSH Medical History Abuse Anxiety Asthma Depression Heart murmur Panic attacks Psychiatric disorder Home Medications [id number] 1 mg tablet 1 tab PO DAILY 10/05/21 [History Last Ta holly 03/06/22 21:00] quetiapine 100 mg tablet (Seroquel) 100 mg PO DAILY 03/07/22 [History Last Taken 03/06/22 21:00] Allergy/AdvReac Type Severity Reaction Status Date / Time Sulfa (Sulfonamide Allergy Rash Verified 03/14/22 16:55 Antibiotics) Surgical History [place] teeth removed Social History Smoking Status: Never smoker alcohol intake: never substance use type: does not use and other details: CBD Gummies for weeks, nothing else History 1 Elective abortions Hx Para 0 Spontaneous abortions Hx # Term Pregnancies Ectopic pregnancies Hx # Pregnancies Multiple births # of living children 1 NST FHR Rate Baby A Baseline: 130 Variability:: Moderate Accelerations:: 15 x 15 Decelerations:: None NST Reactive:: Yes FHR Category:: Category I Uterine Activity:: no regular ctxs FHR Rate Baby B Baseline: 125 Variability:: Moderate Accelerations:: 15 x 15 Decelerations:: None NST Reactive:: Yes FHR Category:: Category I Assessment & Plan (1) Dichorionic diamniotic twin in third trimester: PLAN: Dichorionic diamniotic twin gestation with suspected intrauterine growth restriction. Reactive nonstress test x2. Follow-up as scheduled or as needed.
== END 2023-06-10 12:00 | disposition home or self-care (01) ==
LOC: WPOUT 10:49 → WP 10:50
PROVIDERS: PCP Family Medicine; Referring Provider Obstetrics & Gynecology; Visit Provider Obstetrics & Gynecology
DX: O30.043 Twin pregnancy, dichorionic/diamniotic, third trimester (principal); J45.909 Unspecified asthma, uncomplicated; O99.513 Diseases of the respiratory system complicating pregnancy, third trimester; Z3A.34 34 weeks gestation of pregnancy
CPT/HCPCS: 59025; 59050; 99221; G0378

== ENCOUNTER 2023-06-21 11:34 | Inpatient (IN) | payer OTHER, SELFPAY ==
--- NOTE | 2023-06-20 | PLAC_PTH ---
PATIENT: PARISH KEITH LOC: [facility] U#:[id number] AGE/SX: 27/F ROOM: [facility] RE06/21/[address]: Dr. Lisa Pickett, MDDOB: 1995 BED: 1 DIS: 06/24/2023 SPEC #: [id number] RECD: 06/22/23 07:28 STATUS: PARISA BRYAN #: [id number] NUZHAT: 06/20/23 00:[address]: Lisa Pickett DEPT: SURGICAL PATHOLOGY RECD BY: Silvestre Swann ENTERED: 06/22/23 07:29 SP TYPE: PLACENTA OTHR DR: Dr. Alon Nava MD Tissues: Placenta, NOS Procedures: Surgery Specimen Level V HEADER OPERATION: Primary section PRE-OP DIAGNOSIS: Twins TISSUE SUBMITTED: Twin placenta MICROSCOPIC DIAGNOSIS Twin placenta: Dichorionic and diamniotic twin placenta (749 gm): - Focal area of intraparenchymal hemorrhage just underneath the area of dividing membranous septum. Placenta A Placental disc - third trimester placenta. Membranes - no pathologic diagnosis. Umbilical cord - three blood vessels and no pathologic diagnosis. Placenta B Placental disc - third trimester placenta. Membranes - no pathologic diagnosis. Umbilical cord - three blood vessels and no pathologic diagnosis. SJ:natasha 06/26/2023 MICROSCOPIC DESCRIPTION Slides are reviewed. GROSS DESCRIPTION SPECIMEN: TWIN PLACENTA / CLINICAL INFORMATION: A. Weight: A - 2.45 kg; B - 1.8 kg B. Gestational Age: 35 weeks C. Sex: A - Male, B - Male The specimen consists of twin placenta consisting of a single placental disc, two umbilical cords and membranous septum. Most of the dividing membranous septum is detached and appear to be present at the center portion of the placental disc. The placenta is not identified as placenta A or B. They are arbitrarily assigned A and B. PLACENTAL WEIGHT (POST FIXATION): 749 gm PLACENTAL DIMENSIONS: 21.0 x 17.0 x 3.0 cm PLACENTAL SHAPE: Usual ovoid PLACENTAL WEIGHT FOR GESTATIONAL AGE: Within 10-99th percentile PLACENTA A: MEMBRANES - Present A. Insertion: Marginal B. Site of rupture from edge: At margin of placental disc C. Color of membrane: Man-samuel D. Abnormalities: None UMBILICAL CORD - Present A. Color: Man-samuel B. Insertion: Marginal C. Length: 27.0 cm D. Diameter: 1 to 1.5 cm E. Number of vessels: Three F. Abnormalities: A portion of the umbilical cord has edematous cut surfaces measuring up to 2.5 cm in diameter. PLACENTA B: MEMBRANES - Present, fragmented A. Insertion: Marginal B. Site of rupture from edge: At margin of placental disc C. Color of membrane: Man-samuel D. Abnormalities: None UMBILICAL CORD - Present A. Color: Man-samuel B. Insertion: Central C. Length: 28.0 cm D. Diameter: 1.2 cm E. Number of vessels: Three F. Abnormalities: Focal area shows edematous cut surfaces measuring 2.5 cm in diameter. PLACENTAL DISC - Present A. Color of surface: Man-samuel B. surface abnormalities: None C. Maternal cotyledons: Intact with minimal tears D. Attached retro placental clot: No clot E. Cut surface: Dark red and spongy F. Lesions: Resection of placental disc reveals a man, indurated area just underneath the dividing membranous septum measuring 4.0 x 2.0 x 1.0 cm. G. Separate clot: Absent SECTIONS SUBMITTED: 12 cassettes 1 - Dividing membranous septum, 2-6 - placenta A (2 - membrane roll, 3 - umbilical cord, end inked black, 4-6 - body of the placenta including maternal and surfaces), 7-11 - placenta B (7 - membrane roll, 8 - umbilical cord, end inked black, 9-11 - body of the placenta including maternal and surfaces), 12 - body of the placenta, lesion just underneath the dividing membranous septum SJ:natasha 06/23/2023 TC:5 CPT: 00855 x2
[2023-06-21] VITALS (23 sets, daily range): BP systolic 90–124; BP diastolic 55–77; PULSE 53–89; RESP 16–18; TEMP 36.1–36.6; O2SAT 97–99
--- NOTE | 2023-06-21 12:04 | PCM.HP.BLA ---
History and Physical Date of Admission: 06/21/23 @ 35.6 weeks, Di/Di twins, IUGR twin B was scheduled for cs on monday06/23/23 but today had BPP and doppler on twin B was elevated with forward diastolic flow- recommendation per [facility] is for delivery at this time. Assessment & Plan Assessment/Plan (1) IUGR (intrauterine growth restriction) affecting care of mother: (2) Dichorionic diamniotic twin in third trimester: (3) 35 weeks gestation of : PLAN: Plan Admit to L&D [facility] FHR/TOCO CS- planned today Previous administration of betamethasone
--- NOTE | 2023-06-21 12:08 | PCM.HP.OB ---
HPI - General General Date of Admission: 06/21/23 HPI Narrative PARISH KEITH, is a 27 F who presents @ 35.6 weeks, di/di twin with elevated doppler on twin B today- forwared flow. IUGR twin B. recommend delivery. PFSH PFS Medical History Abuse Anxiety Asthma Depression Heart murmur Panic attacks Psychiatric disorder Home Medications anjyrjel-wsc-Ru-FA 1 mg tablet 1 tab PO DAILY 10/05/21 [History Last Taken 03/06/22 21:00] quetiapine 100 mg tablet (Seroquel) 100 mg PO DAILY 03/07/22 [History Last Taken 03/06/22 21:00] Allergy/AdvReac Type Severity Reaction Status Date / Time Sulfa (Sulfonamide Allergy Rash Verified 03/14/22 16:55 Antibiotics) Surgical History [address] teeth removed Social History Smoking Status: Never smoker alcohol intake: never substance use type: does not use and other details: CBD Gummies for weeks, nothing else History 1 Elective abortions Hx Para 0 Spontaneous abortions Hx # Term Pregnancies Ectopic pregnancies Hx # Pregnancies Multiple births # of living children 1 Vital Signs Vital Signs Vital Signs: 06/21/23 11:49 06/21/23 11:49 06/21/23 11:54 Pulse Rate 76 83 Pulse Ox 99 06/21/23 11:54 06/21/23 11:59 06/21/23 11:59 Pulse Rate 88 Pulse Ox 99 98 06/21/23 12:04 06/21/23 12:04 Pulse Rate 76 Pulse Ox 98 Physical Exam Const alert and oriented x3 General Appearance: cooperative HEENT normocephalic GI GI Narrative: Gravid, non tender to palpation. OB / External & Speculum: external exam normal Extremity normal to inspection Skin no rashes or lesions noted Neuro oriented x3 and CN's II-XII intact bilaterally Psych Appearance: grossly normal Labs Labs Labs: Blood Type A POSITIVE Antibody Screen NEGATIVE Hct 31.9 % (37-47) L Hgb 10.6 g/dL (12.0-15.0) L Syphilis Total Ab Non-reactive VZV IgG Antibody 1538 index (Immune >165) Rubella IgG Antibody Reactive (Nonreactive) Hep Bs Antigen Non-Reactive (Nonreactive) HIV 1&2 Antibody Non-Reactive (Nonreactive) Glucose 1 Hr 50 gm 107 mg/dL (70-140) Rhogam given: No Assessment & Plan (1) 35 weeks gestation of : (2) IUGR (intrauterine growth restriction) affecting care of mother: (3) Dichorionic diamniotic twin in third trimester: PLAN: Plan CS planned today Ancef 2g pre op previous celestone given
[2023-06-21 12:35] LABS: Absolute Lymphocyte Count 1.79 X10^3/uL (0.83-4.51); Absolute Neutrophil Count 6.3 X10^3/uL (2.0-7.7); Basophil# 0.05 X10^3/uL; Basophil% 0.5 % (0-1); Eosinophils% 3.2 % (0-5); Hematocrit 35.9 % (37-47); Hemoglobin 11.4 g/dL (12.0-15.0); Lymphocyte # 1.79 X10^3/ul (0.83-4.51); Mean Corp Hgb Conc 31.8 g/dL (32-36); Mean Corpuscular Hgb 29.3 pg (27.0-32.0); Mean Corpuscular Volume 92.3 fL (81-99); Mean Platelet Vol. 11.6 fl (6.2-12.0); Monocyte# 0.87 X10^3/uL; Monocyte% 9.2 % (0-10); NRBC Flagged by Analyzer 0 % (0-5); Neutrophil # 6.29 X10^3/uL (2.7-7.7); Neutrophil % 66.8 % (47-70); Platelet Count 233 K/mm3 (150-450); RBC Distribution Width CV 15.7 % (11.6-14.6); RBC Distribution Width SD 52.9 fl (35.1-43.9); Red Blood Count 3.89 M/mm3 (4.2-5.4); White Blood Count 9.4 K/mm3 (4.4-11.0)
[2023-06-21] MEDS: Lactated Ringers 1,000 ML 999 ML IV (12:40)
[2023-06-21] MEDS: Acetaminophen 500 MG Tablet 1000 MG PO ×2 (12:49→20:15)
[2023-06-21 13:16] LABS: Syphilis Antibodies Non-reactive
[2023-06-21] MEDS: Albuterol 2.5 MG/3 ML VIAL.NEB. INHALATION (14:01)
[2023-06-21] MEDS: Lactated Ringers 1,000 ML 150 ML IV (14:10)
[2023-06-21] MEDS: Sodium Citrate/Citric Acid 30 ML UDC PO (14:11)
[2023-06-21] MEDS: Cefazolin 2 GM in 0.9% Normal Saline (100mL Bag) 100 ML IV (14:11)
--- NOTE | 2023-06-21 15:21 | OP.PCM_ITS ---
Details Operative Information Date of Procedure: 06/21/23 Pre-Operative Diagnosis: 35.6 weeks gestation, Di/Di twins, IUGR Twin B- elevated Dopplers, Breech Twin A Post-Operative Diagnosis: same, live male infants Classification: Scheduled (ultrasound in office today- [facility] recommends Delivery based on elevated Doppler twin B) Procedure Type: low transverse inventory associate #1: Anurag Smith Type of Anesthesia: Spinal Special Medications: abdoul Antibiotic Given: Ancef 2 grams IV x1 Drain: Ocampo to straight drain Estimated Blood Loss: 600 Fluids Replaced: 750 Procedure Start Time: 14:47 Procedure Stop Time: 15:28 Time of Delivery: 14:52 (1453 twin B) Findings Description of Procedure: After informed consent was obtained the patient was taken the operating room she was given spinal anesthesia. She was then placed in the supine position. She was prepped and draped in the normal sterile fashion. Anesthesia was found to be adequate. At this time a Pfannenstiel skin incision was made with a knife was carried down to the underlying layer of the fascia. The fascial incision was then extended laterally using curved Kitchen scissor. Attention was then turned to the superior aspect of the fascial edge was grasped with 2 straight Shanae clamps tented up and the rectus muscle dissected off sharply using curved Kitchen scissor. Rectus muscles were then in the midline bluntly and peritoneum was entered bluntly. Gentle opposing traction was placed. At this time the vesicouterine peritoneum was identified. Scalpel was used to make a uterine incision in a low transverse fashion. The uterus was then entered bluntly gentle opposing traction was placed to extend this incision. Membranes were ruptured clear. Twin A buttocks was brought to the uterine incision was delivered atraumatically followed by the shoulders and the head without complications. Cord clamped and cut- handed to nursey team. Twin B was delivered Vertex encaul, membranes were then ruptured, clear. Cord was clamped and cut infant was handed to the waiting nursery team. The Placenta was removed from the uterus. The uterus was then removed from the abdominal cavity. The uterus was cleared of all clots and debris using a lap. At this time the uterine incision was reapproximated using #1 Vicryl in a running locked fashion. Hemostasis was appreciated. Posterior cul-de-sac was then cleared of all clots and debris. tubes and ovaries appeared normal. Uterus was placed back in the abdominal cavity. Gutters were cleared of all clots and debris. Uterine incision was reevaluated and noted to be of excellent hemostasis. Abdoul placed. At this time the peritoneum was grasped with Kellys reapproximated using #2 Vicryl suture in a running fashion. Abdoul placed over rectus muscle. Fascia was then reapproximated using #1 Vicryl in a running fashion. Subcu layer was irrigated with NS, then reapproximated with #2 0 plain gut suture in an interrupted fashion. Subcu layer was closed using 4-0 Monocryl in a Willi needle in a subcu fashion. Dry sterile dressing was applied. Instrument lap needle count correct ?2. Anticipated normal postoperative course. Presentation: Positive for Complete Breech Amniotic Membrane Rupture Type: Artificial Amniotic Fluid Description: Clear Placental Delivery Description: Expressed Placenta Disposition: Routine to Lab Specimen(s) Sent to Pathology: placenta Cord Vessel Description: 3 Vessels Cord Entanglement: None A Gender: Male (1 minute): 8 (5 minute): 9 Delayed Cord Clamping: No Complications Risks of Surgery Discussed w/Patient: Bleeding, Anesthesia Risks and Injury to surrounding structure(s) including bowel and bladder Baby B Information Amniotic Membrane Rupture Type: Artificial Presentation: Vertex Operative Information Mode of Delivery: Cord Vessel Description: 3 Vessels Cord Entanglement: None B gender: Male (1 minute): 8 (5 minute): 9 Delayed Cord Clamping: No
[2023-06-21] MEDS: Ketorolac 30 MG/ML Syringe IV ×2 (16:09→22:25)
[2023-06-21] MEDS: Oxytocin 15 Units/NS 250ml 15 UNITS/250 ML IV.SOLN 83 UNITS IV (16:12)
[2023-06-21] MEDS: Ondansetron 4 MG/2 ML Vial IV (18:20)
[2023-06-21] MEDS: Lactated Ringers 1,000 ML 100 ML IV (19:14)
[2023-06-21] MEDS: lamoTRIgine 100 MG Tablet 200 MG PO (22:26)
--- NOTE | 2023-06-21 23:00 | NURSING ---
pt has indwelling urinary catheter
[2023-06-22] VITALS (9 sets, daily range): BP systolic 105–112; BP diastolic 49–64; PULSE 57–86; RESP 14–18; TEMP 36.2–37.2; O2SAT 96–98
[2023-06-22] MEDS: Acetaminophen 500 MG Tablet 1000 MG PO ×4 (00:40→20:19)
[2023-06-22] MEDS: Ketorolac 30 MG/ML Syringe IV ×2 (03:37→10:15)
[2023-06-22] MEDS: 0.9% Saline Lock 10 ML Syringe IV ×3 (03:37→10:19)
[2023-06-22] MEDS: Enoxaparin 40 MG/0.4 ML Syringe SC (03:52)
[2023-06-22 05:03] LABS: Hematocrit 29.5 % (37-47); Hemoglobin 9.5 g/dL (12.0-15.0); Mean Corp Hgb Conc 32.2 g/dL (32-36); Mean Corpuscular Hgb 29.6 pg (27.0-32.0); Mean Corpuscular Volume 91.9 fL (81-99); Mean Platelet Vol. 11.2 fl (6.2-12.0); Platelet Count 189 K/mm3 (150-450); RBC Distribution Width CV 15.4 % (11.6-14.6); RBC Distribution Width SD 51.8 fl (35.1-43.9); Red Blood Count 3.21 M/mm3 (4.2-5.4); White Blood Count 12.5 K/mm3 (4.4-11.0)
--- NOTE | 2023-06-22 08:21 | PN.OBGYN_ITS ---
Subjective Subjective Patient seen at bedside. both infants. Stated feeling good. Has only stood at bedside. Ocampo catheter still in place. Denies any headache, dizziness, SOB, or CP. Objective Data Objective Data Vital Signs: Vital Signs Temp Pulse Resp BP Pulse Ox O2 Del Method 97.9 F 68 18 105/49 L 96 Room Air 06/22/23 03:27 06/22/23 03:27 06/22/23 03:27 06/22/23 03:27 06/22/23 03:27 06/22/23 03:27 Oxygen Delivery Method Room Air Weight: 175 lb Body Mass Index (BMI) 30.0 Intake & Output: Intake and Output for Last 24 Hours 06/20/23 06/21/23 06/22/23 23:59 23:59 23:59 Intake Total 1765 / 1765 830 / 830 Output Total 800 / 800 1040 / 1040 Balance 965 / 965 -210 / -210 Lab / Micro Data 06/22/23 04:55 Labs: Laboratory Results - last 24 hr 06/21/23 12:15: WBC 9.4, RBC 3.89 L, Hgb 11.4 L, Hct 35.9 L, MCV 92.3, MCH 29.3, MCHC 31.8 L, RDW Std Deviation 52.9 H, RDW Coeff of Ksenia 15.7 H, Plt Count 233, MPV 11.6, Immature Gran % (Auto) 1.300 H, Neut % (Auto) 66.8, Lymph % (Auto) 19.0, Haralson % (Auto) 9.2, Eos % (Auto) 3.2, Baso % (Auto) 0.5, Absolute Neuts (auto) 6.3, Absolute Lymphs (auto) 1.79, Nucleated RBC % 0, Syphilis Total Ab Non-reactive, Blood Type A POSITIVE, Antibody Screen NEGATIVE 06/22/23 04:55: WBC 12.5 H, RBC 3.21 L, Hgb 9.5 L, Hct 29.5 L, MCV 91.9, MCH 29.6, MCHC 32.2, RDW Std Deviation 51.8 H, RDW Coeff of Ksenia 15.4 H, Plt Count 189, MPV 11.2 ROS Eyes Eyes: Denies blurry vision, change in vision or spots in vision ENT HEENT: Denies dizziness or headache(s) Cardiovascular Cardiovascular: Denies abdominal pain, chest pain or dyspnea Respiratory/Chest Respiratory/Chest: Denies cough, dyspnea, shortness of breath at rest or shortness of breath with exertion Gastrointestinal Gastrointestinal: Denies abdominal pain, diarrhea or vomiting Genitourinary Genitourinary: Denies change in urinary stream, difficulty urinating or dysuria Musculoskeletal Musculoskeletal: Reports none Integumentary Integumentary: Denies rash Neurologic Neurologic: Denies dizziness, headache(s), memory loss or weakness Physical Exam Narrative Dressing is dry and intact Const alert and no apparent distress General Appearance: cooperative and comfortable Exam Limitations: no limitations HEENT normocephalic Eyes General Eye: normal appearance of both eyes Neck full ROM General: normal visual inspection Chest Chest: symmetrical chest wall rise Resp normal respiratory effort and normal air movement Effort and Inspection: symmetric chest movement Auscultation: clear to auscultation bilaterally Cardio regular rate and regular rhythm GI normal to inspection, nondistended, normoactive bowel sounds Back/Spine normal ROM Extremity full ROM and no calf tenderness General Extremity: normal exam except as noted Skin no rashes or lesions noted Neuro CN's II-XII intact bilaterally Psych mental status grossly normal Assessment & Plan (1) Dichorionic diamniotic twin in third trimester: (2) Psychiatric disorder: COMMENT: PTSD, ?dx of Bipolar d/o (3) Status post section routine follow-up: (4) Care and examination of lactating mother: (5) Anemia due to blood loss, acute: PLAN: Plan POD 1 Primary C/S twins Ferrous Sulfate - PO daily support Increase ambulation Pain control Social Service consult
[2023-06-22] MEDS: Albuterol 2.5 MG/3 ML VIAL.NEB. INHALATION (09:14)
[2023-06-22] MEDS: Senna/Docusate Sodium 1 Tablet PO (10:14)
[2023-06-22] MEDS: Prenatal Vits Tablet 1 TABLET PO (12:52)
[2023-06-22] MEDS: Ferrous Sulfate 325 MG Tablet PO ×2 (12:52→18:00)
--- NOTE | 2023-06-22 13:40 | CASEMGMT ---
Social Work Assessment Labor and Delivery Unit Patient Address: [address] [place] [address] [place] [address] Phone number: [phone] Date of Referral: 06/21/23 Time of Referral:?[id number] Referred By: Lisa Newsome Date of Intervention: ??06/22/23 Time of Intervention:? 1901 Reason for Referral:?Mental health Sw completed chart review and acknowledges social work consult due to maternal mental health history. Sw presented to bedside and introduced self to mother of babies (MOB- Barron) and father of babies (FOB- Mitchell). Sw explained reason for social work consult. Sw completed assessment and asked FOB to step out of room briefly so that MOB could complete Henning Depression Scale. FOB stepped out of room respectfully and without issue. History obtained from: medical records and mother of baby (DEAN) and FOB. ?? Household composition: Currently residing in the home is DEAN, COLBY, their one year old daughter (Lb) and now twin boys when they are medically ready for discharge. Parents state that their housing is safe, and deny any issues or concerns. Patient's parent/guardian status:? Parents report that they have known each other for a long time, since they were kids. They have friends/ family in common. They have been together for four years, for two. While meeting with MOB privately she denies any concerns regarding domestic violence or intimate partner violence. ? Medical History: ?DEAN is hospitalized due to delivery of twin babies. DEAN is 2, para 1- now 3. DEAN presented to hospital at 35 weeks gestation and delivered twins via . Babies, Twin A: Tania and Twin B: Nico were born on 06/21/23. Tania weighed 5lb 6oz and his apgars were 8 and 9 and one and five minutes of life respectfully. Nico was born weighing 3lb 15 oz and his apgars were 8 and 9 at one and five minutes of life respectfully. Parents state that so far things are going okay with twins. DEAN reports that she is breast feeding and it is going well. Educational Status:?Both parents graduated from high school and have college degrees. MOB has a [employer] degree. FOB has an associates degree in accounting. Parents deny any issues with learning, reading or comprehension. Financial Status: COLBY is gainfully employed outside of the home as a cook for a [employer] company. 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 Supplies: Parents state that they have obtained all necessary baby items, including 2 of: car seats, safe sleep spaces, clothes, diapers, wipes and a breast pump. Childcare/Caregiver(s):? DEAN will be the primary caregiver to the twins, along with COLBY when he is not at work. Parents state that they have a lot of family that lives close by who are also available to help when needed. While parents are at the hospital their daughter is being cared for by paternal grandma. Transportation:?? Parents have their drivers license and reliable transportation. No transportation barriers at this time. Programs/Agencies Involved: ???Parents are connected to [facility], no other linkage to community resources. DEAN is receiving mental health counseling through an agency (she does not remember the name), her counselors name is: Zita Lynne. Children Services/Legal Issues:??? No history with Children Services, no concerns that warrant a referral to be made at this time. Behavioral Health Issues: ??Mental Health History:?COLBY denies mental health diagnoses. DEAN states that she has been diagnosed with anxiety and depression. MOB states that prior to the delivery of her first baby she experienced a manic episode where she was brought into the Emergency Department and then spent several days inpatient. MOB states that at that time she missed a dose of her psychotropic medication and believes that is what caused her to experience symptoms. MOB states that she has not experienced any type of manic episodes since that incident. MOB states that she feels counseling and medication management has been her biggest reason why her mental health has been managed. ?? Substance Use History:?MOB denies substance use prior to and during . DEAN did have a positive urine screen for THC in December of 2021. ? Family History:?Parents deny family history of mental health and substance use. ? Drug Screens: No urine screen observed in chart review. Family/Social Stressors:? Parents deny stressors at this time. Support Systems: Family has a strong support network found in natural family supports and friends. Depression/Shaken Baby/Safe Sleeping: Sw provided education and literature on signs and symptoms of baby blues and depression/ anxiety. Sw encouraged parents to have a conversation about ways that FOB is able to support MOB during this period. Parents expressed understanding. MOB stated that FOB is a good support person for her and she believes that he would be able to recognize if MOB was struggling. Sw educated parents on shaken baby prevention and ABCs of safe sleep. Parents expressed understanding. ASSESSMENT:? MOB and babies currently admitted to following delivery on 06/21. Parents are strong supports for one another. Parents appear to have strong family supports and people who will be able to help them transition to home once MOB and babies are ready for discharge. Parents have obtained all necessary baby supplies. Parents engaged in psychosocial assessment although were slow to warm up at beginning of conversation. Parents appear to have good understanding of maternal mental health concerns and her history. Parents were receptive to sw involvement and support. PLAN:? MOB and babies to be discharged when medically ready. ?No other services requested or indicated. Spencer Duque, HEAD OF DESIGN, JUNIOR ACCOUNT MANAGER
--- NOTE | 2023-06-22 14:24 | NURSING ---
This manager nursing reviewed the documentation completed by Andre Barroso, student nurse. Also this instructor was present and directly observed the student completed medication administration.
[2023-06-22] MEDS: Ibuprofen 600 MG Tablet PO ×2 (16:36→21:42)
[2023-06-22] MEDS: lamoTRIgine 100 MG Tablet 200 MG PO (21:41)
[2023-06-22] MEDS: oxyCODONE 5 MG Tablet PO (21:43)
[2023-06-23] MEDS: Acetaminophen 500 MG Tablet 1000 MG PO ×4 (02:48→21:04)
[2023-06-23 02:50] VITALS: BP 110/70; PULSE 70; RESP 16; TEMP 36.4; O2SAT 98
[2023-06-23] MEDS: Ibuprofen 600 MG Tablet PO ×4 (03:38→21:03)
[2023-06-23] MEDS: Enoxaparin 40 MG/0.4 ML Syringe SC (03:40)
[2023-06-23 08:00] VITALS: BP 105/69; PULSE 91; RESP 18; TEMP 37; O2SAT 98
--- NOTE | 2023-06-23 08:14 | PCM.PN.OB ---
Subjective Subjective Pain controlled Objective Data Objective Data Vital Signs: Vital Signs Temp Pulse Resp BP Pulse Ox O2 Del Method 97.5 F L 70 16 110/70 98 Room Air 06/23/23 02:50 06/23/23 02:50 06/23/23 02:50 06/23/23 02:50 06/23/23 02:50 06/23/23 02:50 Oxygen Delivery Method Room Air Weight: 175 lb Body Mass Index (BMI) 30.0 Intake & Output: Intake and Output for Last 24 Hours 06/21/23 06/22/23 06/23/23 23:59 23:59 23:59 Intake Total 1765 / 1765 830 / 830 Output Total 800 / 800 2790 / 2790 Balance 965 / 965 -1960 / -1960 Lab / Micro Data 06/22/23 04:55 Physical Exam Const alert, oriented x3 and no apparent distress HEENT normocephalic GI soft to palpation, non-tender and non-distended GI Narrative: fundus firm, mid & below umbilicus Incision - bandage c/d/i Extremity normal to inspection and no calf tenderness Assessment & Plan (1) Status post section routine follow-up: COMMENT: POD#2 PLAN: Plan Routine care Possible d/c home later today
--- NOTE | 2023-06-23 08:15 | PCM.DC.SUM ---
Providers Date of Admission: 06/21/23 Primary Care Physician: Dr. Alon Nava MD Reason For Visit: PRIMARY Diagnosis Discharge Diagnosis (1) Status post section routine follow-up: Status: Acute Code(s): Z39.2 - Encounter for routine follow-up; Z98.891 - History of uterine scar from previous surgery Plan Routine care Possible d/c home later today Medications at Discharge Home Medications zczhqlrl-rad-Yv-FA 1 mg tablet 1 tab PO DAILY 10/05/21 quetiapine 100 mg tablet (Seroquel) 100 mg PO DAILY 03/07/22 acetaminophen 500 mg tablet 1,000 mg (2 x 500 mg) PO Q6H #0 tabs 06/23/23 ibuprofen 600 mg tablet 600 mg PO Q6H #0 tabs 06/23/23 Hospital Course Operations section Summary of Care Provided Minutes Spent on Discharge: 15 Physical Exam Const alert, oriented x3 and no apparent distress HEENT normocephalic GI soft to palpation, non-tender and non-distended GI Narrative: fundus firm, mid & below umbilicus Incision - bandage c/d/i Extremity normal to inspection and no calf tenderness Weight / BMI Weight Weight: 175 lb Body Mass Index (BMI) 30.0 ABG / Lab / Microbiology Data 06/22/23 04:55 D/C Instructions Discharge Diet: No restrictions Discharge Activity: May Shower May resume sexual activity in: 6 weeks Weight Bearing Status: Weight bearing as tolerated Call your doctor if your incision/area has: Continuous Slow Oozing, Sudden Increased Bleeding, Increased Pain/ Swelling, Increased Redness, Foul Smelling Discharge and Swelling at the incision site Call your doctor if you observe: Fever of 101 or Higher, Coldness, Increased Pain, Change in Color, Inability to urinate, Inability to have a bowel movement, Using more than 1 pad per hour, Shortness of breath, Dizziness, Fainting spells, Chest pain, Increased palpitations (irregular heartbeat), Calf discomfort and Uncontrolled pain Suture Line Care: Avoid Pulling/Pushing and Avoid Pinching/Bending Remove Dressing in: 1 week Cleanse incision/area with: Soap & Water Please Follow Up With: Fernando English MD When: Follow up in 2 and 6 weeks for visits. Meaningful Use Info Meaningful Use Diagnoses (Choose all that apply): None applicable Discharge Plan Admission Admit Date/Time: 06/21/23 11:34 Primary Reason for Your Visit: section Attending Provider: Lisa Pickett Primary Care Provider: Alon Nava Discharge Orders/Prescriptions Prescriptions: New acetaminophen 500 mg Tablet 1,000 mg PO Q6H Qty: 0 0RF ibuprofen 600 mg Tablet 600 mg PO Q6H Qty: 0 0RF Continued welbxeyv-vuo-Or-FA 1 mg Tablet 1 tab PO DAILY quetiapine [Seroquel] 100 mg Tablet 100 mg PO DAILY Referrals / Follow Up: Alon Nava MD [Primary Care Provider] - Disposition Disposition (needs filled in before D/C Order can be placed): Home, Self Care
[2023-06-23 09:31] VITALS: RESP 18; O2SAT 98
[2023-06-23] MEDS: Senna/Docusate Sodium 1 Tablet PO (09:52)
[2023-06-23] MEDS: Prenatal Vits Tablet 1 TABLET PO (09:52)
--- NOTE | 2023-06-23 11:33 | NURSING ---
Student charting reviewed and agree. PGacharly ODOM instructor
[2023-06-23 12:00] VITALS: BP 108/69; PULSE 82; RESP 18; TEMP 36.7; O2SAT 96
[2023-06-23] MEDS: Ferrous Sulfate 325 MG Tablet PO ×2 (12:41→15:15)
[2023-06-23] MEDS: oxyCODONE 5 MG Tablet PO (12:41)
[2023-06-23 20:34] VITALS: BP 115/60; PULSE 82; RESP 16; TEMP 36.8; O2SAT 95
[2023-06-23] MEDS: lamoTRIgine 100 MG Tablet 200 MG PO (21:46)
[2023-06-24 02:58] VITALS: BP 108/61; PULSE 68; RESP 16; TEMP 36.6; O2SAT 97
[2023-06-24] MEDS: Ibuprofen 600 MG Tablet PO ×2 (03:10→09:34)
[2023-06-24] MEDS: Acetaminophen 500 MG Tablet 1000 MG PO ×2 (03:10→09:33)
[2023-06-24] MEDS: Enoxaparin 40 MG/0.4 ML Syringe SC (05:27)
[2023-06-24 09:10] VITALS: BP 115/70; PULSE 71; RESP 18; TEMP 36.5
[2023-06-24] MEDS: Ferrous Sulfate 325 MG Tablet PO (12:18)
[2023-06-24] MEDS: Prenatal Vits Tablet 1 TABLET PO (12:18)
--- NOTE | 2023-06-24 12:31 | PCM.PN.OB ---
Subjective Subjective Pain controlled Objective Data Objective Data Vital Signs: Vital Signs Temp Pulse Resp BP Pulse Ox O2 Del Method 97.7 F L 71 18 115/70 97 Room Air 06/24/23 09:10 06/24/23 09:10 06/24/23 09:10 06/24/23 09:10 06/24/23 02:58 06/24/23 02:58 Oxygen Delivery Method Room Air Weight: 175 lb Body Mass Index (BMI) 30.0 Intake & Output: Intake and Output for Last 24 Hours 06/22/23 06/23/23 06/24/23 23:59 23:59 23:59 Intake Total 830 / 830 Output Total 2790 / 2790 Balance -1960 / -1960 Lab / Micro Data 06/22/23 04:55 Physical Exam Const alert, oriented x3 and no apparent distress HEENT normocephalic GI soft to palpation, non-tender and non-distended GI Narrative: fundus firm, mid & below umbilicus Incision - bandage c/d/i Extremity normal to inspection and no calf tenderness Assessment & Plan (1) Status post section routine follow-up: COMMENT: POD#3 PLAN: Plan D/c home
[2023-06-24 13:30] VITALS: BP 112/68; PULSE 81; RESP 16; TEMP 36.7
[2023-06-24 15:21] LABS: Pathology Specimen OB SEE PATHOLOGY REPORT
== END 2023-06-24 14:30 | disposition home or self-care (01) | DRG 787 ==
PROVIDERS: Pediatrics; Admitting Provider Obstetrics & Gynecology; PCP Family Medicine; Visit Provider Obstetrics & Gynecology
DX: O32.1XX0 Maternal care for breech presentation, not applicable or unspecified (principal); D62 Acute posthemorrhagic anemia; O36.5930 Maternal care for other known or suspected poor fetal growth, third trimester, not applicable or unspecified; Z37.2 Twins, both liveborn; O90.81 Anemia of the puerperium; O30.043 Twin pregnancy, dichorionic/diamniotic, third trimester; F43.10 Post-traumatic stress disorder, unspecified; O99.344 Other mental disorders complicating childbirth; Z3A.35 35 weeks gestation of pregnancy
CPT/HCPCS: 59025; 59050; 85025; 85027; 86780; 86850; 86900; 86901; 88307; 94640; 99221; J7120; A4216; G0378; J2405